=== PATIENT | female | born 1945 | race Hispanic/Latino ===

== ENCOUNTER 2018-03-28 09:12 | Outpatient (CLI) | payer MEDICARE, OTHER | END 2018-03-28 09:13 | disposition home or self-care (01) | LOC: RAD 09:12 | DX: Z12.31 Encounter for screening mammogram for malignant neoplasm of breast (principal) ==

== ENCOUNTER 2018-04-09 09:29 | Outpatient (CLI) | payer MEDICARE, OTHER | END 2018-04-09 09:30 | disposition home or self-care (01) | LOC: RAD 09:29 | DX: Z13.820 Encounter for screening for osteoporosis (principal) ==

== ENCOUNTER → 2018-06-10 | Outpatient (CLI) | payer MEDICARE, OTHER | LOC: LAB 11:03 ==

== ENCOUNTER 2018-06-12 13:22 | Outpatient (CLI) | payer MEDICARE, OTHER | END 2018-06-12 13:23 | disposition home or self-care (01) | LOC: LAB 13:22 | DX: R19.7 Diarrhea, unspecified (principal) ==

== ENCOUNTER 2018-06-20 00:42 | Inpatient (IN) | payer MEDICARE, OTHER ==
[2018-06-20 01:06] VITALS: BMI 28.3
--- NOTE | 2018-06-20 01:09 | ED PDOC ---
Arrival/HPI - General Time Seen by Provider: 06/20/18 00:47 Historian: Family - History of Present Illness Narrative History of Present Illness (Text): 06/20/18 01:09 73 year old female, whose past medical history includes Hypertension, diabetes, and Hypercholesterolemia, presents to the emergency department with altered mental status. Patient's family inform she was last normal 1 hour prior to arrival. Family informs patient became incoherent and unaware. Family inform patient is usually oriented to person place and time, but was unable to give her own name. HPI and ROS limited due to patient's AMS. Time/Duration: 1 hour Symptom Onset: Gradual Symptom Course: Unchanged Activities at Onset: Light Context: Home Past Medical History - Provider Review Nursing Documentation Reviewed: Yes - Cardiac Hx Pacemaker: No - Neurological Hx Paralysis: No - Hematological/Oncological Hx Blood Transfusions: No Hx Blood Transfusion Reaction: No - Musculoskeletal/Rheumatological Hx Musculoskeletal Disorders: (LUPUS) - Psychiatric Hx Emotional Abuse: No Hx Physical Abuse: No Hx Substance Use: No - Anesthesia Hx Anesthesia Reactions: No - Suicidal Assessment Feels Threatened In Home Enviroment: No Family/Social History - Physician Review Nursing Documentation Reviewed: Yes Family/Social History: No Known Family HX Hx Alcohol Use: Yes (OCC WINE) Hx Substance Use: No Allergies/Home Meds Allergies/Adverse Reactions: Allergies No Known Allergies Allergy (Verified 06/20/18 01:05) Home Medications: Home Meds Medication Instructions Recorded Confirmed Amlodipine Besylate [Norvasc] 1 tab PO DAILY 05/12/15 05/12/15 Aspirin [Ecotrin] 81 mg PO DAILY 05/12/15 05/12/15 Atorvastatin [Lipitor] 1 tab PO DIN 05/12/15 05/12/15 Ezetimibe [Zetia] 1 tab PO HS 05/12/15 05/12/15 Folic Acid 1 tab PO DAILY 05/12/15 05/12/15 Glimepiride [Amaryl] 1 tab PO DAILY 05/12/15 05/12/15 Hydroxychloroquine Sulfate 1 tab PO BID 05/12/15 05/12/15 [Plaquenil] Irbesartan [Avapro] 1 tab PO HS 05/12/15 05/12/15 Metoclopramide HCl [Reglan] 1 tab PO BID 05/12/15 05/12/15 Metoprolol Succinate XL [Toprol XL] 1 tab PO DAILY 05/12/15 05/12/15 Paradise-3 Acid Ethyl Esters [Lovaza] 2 cap PO BID 05/12/15 05/12/15 Omeprazole [Prilosec] 1 cap PO DAILY 05/12/15 05/12/15 PARoxetine [Paxil] 1 tab PO DAILY 05/12/15 05/12/15 Review of Systems - Physician Review All systems were reviewed & negative as marked: Yes - Review of Systems Systems not reviewed;Unavailable: Altered Mental Status Physical Exam - Physical Exam Physical Exam Limitations: Altered Mental Status Medical Decision Making ED Course and Treatment: 06/20/18 01:19 Impression: 73 year old female presents with AMS. code strroke called on arrival. upon reurn from ct, pt noted to spike fever. empriic antibiotics given . stroke vs sepsis. Plan: -- Type and Screen -- CTA Head neck -- CT Head -- EKG -- CMP, A1C, Lipid panel, Trop -- Stroke team consult -- CBC, Platelets -- Chest X-ray -- Reassess and disposition Prior Visits: Notes and results from previous visits were reviewed. Progress Notes: 06/20/18 02:07 CT of the head Clinical history: possible stroke. Protocol: Multiple axial CT images obtained with 5 mm slice thickness were obtained through the head without administration of contrast. Comparison: None. Findings: Motion artifact limits some of the fine detail on this study. The ventricles and sulci are symmetric but prominent in size bilaterally. There are periventricular areas of low attenuation throughout the deep white matter. There is no evidence of acute hemorrhage or infarct. There is no midline shift, mass effect, or extra-axial fluid collection. The osseous structures are unremarkable. The visualized paranasal sinuses and mastoid air cells are clear. Impression: No acute hemorrhage or infarct. Findings are consistent with mild age-related atrophy and chronic small vessel ischemic disease. 06/20/18 02:[address] Prince, patient is not a tPA candidate as symptom onset was 19:00 yesterday. 06/20/18 03:34 EKG Reviewed by me, shows: NSR @84bpm Nonspecific STT wave changes No previous for comparison 06/20/18 04:01 abd soft no ttp. hemodynamic stable. urine pending. accepted dr torres. NIHSS Scale ([place]) Time Performed: 01:07 - How Severe is the Stoke Baseline Level of Consciousness: 0=Alert LOC to Questions: 2=Neither correct LOC to commands: 1=Obeys one correctly Best Gaze: 0=Normal Visual: 0=No visual loss Facial: 0=Normal Motor Arm - Left: 0=No drift Motor Arm - Right: 0=No drift Motor Leg - Left: 0=No drift Motor Leg - Right: 0=No drift Limb Ataxia: 0=Absent Sensory: 0=Normal Best Language: 2=Severe aphasia Dysarthia: 0=Normal articulation Extinction & Inattention (Neglect): 0=Normal, no object Score: 5 Risk Level: Mod Stroke Risk rTPA Inclusion/Exclusion - Refusal of Treatment Patient Refused Treatment: No - Inclusion Criteria for Altepase All of the below criteria for inclusion were reviewed: Yes Patient is 18 years or Older: Yes The Clinical Diagnosis of Ischemic Stroke That is Causing a Potentially Disabling Neurological Deficit: Yes Time of Onset is Well Established to be Less Than 270 Minute Before Treatment Would Begin: Yes Risk/Benefit Discussed With Patient/Family Member Present: Yes - Scribe Statement The provider has reviewed the documentation as recorded by the Maneibe John Husain Provider Scribe Attestation: All medical record entries made by the Scribe were at my direction and personally dictated by me. I have reviewed the chart and agree that the record accurately reflects my personal performance of the history, physical exam, medical decision making, and the department course for this patient. I have also personally directed, reviewed, and agree with the discharge instructions and disposition. Disposition/Present on Arrival - Present on Arrival Any Indicators Present on Arrival: No - Disposition Have Diagnosis and Disposition been Completed?: Yes Diagnosis: Altered mental status, Fever Disposition: HOSPITALIZED Disposition Time: 03:00 Condition: FAIR
[2018-06-20] MEDS ORDERED: Iodixanol 320 MG/ML 100 ML BOTTLE IV ONE ×2 (01:19→01:45)
[2018-06-20 01:23] LABS: BASO # 0.05 K/mm3 (0.0-2.0); BASO % 0.4 % (0.0-3.0); EOS # 0.1 (0.0-0.7); EOS % 0.8 % (1.5-5.0); HEMOGLOBIN 12.7 g/dL (12.0-16.0); LYMPH # 1.8 (1.2-3.4); LYMPH % 15.3 % (22.0-35.0); MEAN CELL VOLUME 86.6 fl (80.0-105.0); MEAN CORPUSCULAR HEMOGLOBIN 29.4 pg (25.0-35.0); MEAN PLATELET VOLUME 10.8 fl (7.0-11.0); MONO # 0.8 (0.1-0.6); MONO % 6.8 % (1.0-6.0); RBC 4.32 10^6/uL (3.5-6.1); RED CELL DISTRIBUTION WIDTH 13.6 % (11.5-14.5); WHITE BLOOD COUNT 11.9 10^3/uL (4.5-11.0)
[2018-06-20 01:33] LABS: ALB/GLOB RATIO 1.7 (1.1-1.8); ALBUMIN 4.2 g/dL (3.0-4.8); ALT/SGPT 19 U/L (7-56); AST/SGOT 22 U/L (14-36); BLOOD UREA NITROGEN 14 mg/dL (7-21); CALCIUM 9.1 mg/dL (8.4-10.5); GFR NON-AFRICAN AMERICAN 55; HDL CHOLESTEROL 32 mg/dL (29-60)
[2018-06-20 01:39] LABS: INR 1.14; PARTIAL THROMBOPLASTIN TIME 34.9 Seconds (26.9-38.3); PROTHROMBIN TIME 12.6 SECONDS (9.4-12.5)
[2018-06-20 01:44] LABS: LDL CHOLESTEROL 76 mg/dL (0-129)
[2018-06-20 01:47] LABS: TROPONIN I < 0.01 ng/mL
[2018-06-20] MEDS: Sodium Chloride 0.9% 1,000 ML IV SCH ×2 (02:15→22:53)
[2018-06-20 02:46] LABS: VENOUS BLOOD GAS BASE EXCESS 0.7 mmol/L (0.0-2.0); VENOUS BLOOD GAS PO2 31 mm/Hg (30-55); VENOUS BLOOD PH 7.41 (7.32-7.43)
[2018-06-20] MEDS ORDERED: Vancomycin 1gm in NS 250ml 1 GM/250 ML BAG IVPB STA (02:53)
--- NOTE | 2018-06-20 04:44 | CP.PCM.HP ---
History of Present Illness - History of Present Illness History of Present Illness: H&P for Dr. Adam CC: AMS Patient is a 73 yo F with PMH of HTN, HLD, DM, depression, and Lupus presents to [facility] [place] due to altered mental status. History was provided by family at bedside as HPI/ROS was limited 2/2 patient's current mental status. Patient's states that she was normal as of 7 pm last night when she had an acute change in her mental status. Patient became confused, aphasic, and unaware of her surroundings. Family states that patient is AOx3 at baseline. On my interview, patient was able to verbalize "yes" and "no", but it is unclear whether patient understands questioning. Patient does not follow commands. PMH: HTN, HLD, DM, depression, Lupus Surg: Right knee replacement All: NKDA SH: 1 ppd tobacco use for 30 years and social EtOH use; no illicit drug use FHx: Unknown, patient is adopted Medications reviewed as per MAR Present on Admission - Present on Admission Any Indicators Present on Admission: No Review of Systems - Review of Systems Systems not reviewed;Unavailable: Altered Mental Status Past Patient History - Past Social History Smoking Status: Light Smoker < 10 Cigarettes Daily - CARDIAC Hx Pacemaker: No - NEUROLOGICAL Hx Paralysis: No - ENDOCRINE/METABOLIC Hx Endocrine Disorders: Yes Hx Diabetes Mellitus Type 2: Yes - HEMATOLOGICAL/ONCOLOGICAL Hx Blood Transfusions: No Hx Blood Transfusion Reaction: No - MUSCULOSKELETAL/RHEUMATOLOGICAL Hx Musculoskeletal Disorders: (LUPUS) - PSYCHIATRIC Hx Emotional Abuse: No Hx Physical Abuse: No Hx Substance Use: No - SURGICAL HISTORY Hx Surgeries: Yes (SEE ABOVE) - ANESTHESIA Hx Anesthesia Reactions: No Meds Allergies/Adverse Reactions: Allergies Allergy/AdvReac Type Severity Reaction Status Date / Time No Known Allergies Allergy Verified 06/20/18 01:05 Physical Exam - Constitutional Appears: Confused - Head Exam Head Exam: NORMAL INSPECTION - Eye Exam Eye Exam: Normal appearance - ENT Exam ENT Exam: Mucous Membranes Moist, Normal Exam - Neck Exam Neck exam: Positive for: Normal Inspection - Respiratory Exam Respiratory Exam: Clear to Auscultation Bilateral. absent: Rales, Rhonchi, Wheezes - Cardiovascular Exam Cardiovascular Exam: RRR, +S1, +S2. absent: Diastolic murmur, Gallop, Rubs, Systolic Murmur - GI/Abdominal Exam GI & Abdominal Exam: Soft. absent: Distended, Guarding, Rebound, Tenderness - Extremities Exam Extremities exam: Positive for: normal inspection - Back Exam Back exam: NORMAL INSPECTION - Neurological Exam Neurological exam: Altered - Skin Skin Exam: Dry, Intact, Warm Results - Vital Signs Recent Vital Signs: Last Vital Signs Temp 100 F H 06/20/18 03:42 Pulse 79 06/20/18 03:42 Resp 18 06/20/18 03:42 BP 107/59 L 06/20/18 03:42 Pulse Ox 97 06/20/18 03:42 - Labs Result Diagrams: 06/20/18 01:15 06/20/18 01:15 Labs: Laboratory Results - last 24 hr 06/20/18 06/20/18 06/20/18 00:59 01:15 01:15 WBC 11.9 H RBC 4.32 Hgb 12.7 Hct 37.4 MCV 86.6 MCH 29.4 MCHC 34.0 RDW 13.6 Plt Count 258 MPV 10.8 Neut % (Auto) 76.7 H Lymph % (Auto) 15.3 L Dawson % (Auto) 6.8 H Eos % (Auto) 0.8 L Baso % (Auto) 0.4 Lymph # (Auto) 1.8 Dawson # (Auto) 0.8 H Eos # (Auto) 0.1 Baso # (Auto) 0.05 Absolute Neuts (auto) 9.09 H PT 12.6 H INR 1.14 APTT 34.9 pO2 VBG pH VBG pCO2 VBG HCO3 VBG Total CO2 VBG O2 Sat (Calc) VBG Base Excess VBG Potassium Glucose Lactate FiO2 Sodium Potassium Chloride Carbon Dioxide Anion Gap BUN Creatinine Est GFR ( Amer) Est GFR (Non-Af Amer) POC Glucose (mg/dL) 128 H Random Glucose Calcium Total Bilirubin AST ALT Alkaline Phosphatase Troponin I Total Protein Albumin Globulin Albumin/Globulin Ratio Triglycerides Cholesterol LDL Cholesterol Direct HDL Cholesterol Venous Blood Potassium Blood Type Antibody Screen BBK History Checked 06/20/18 06/20/18 06/20/18 01:15 01:15 02:14 WBC RBC Hgb Hct MCV MCH MCHC RDW Plt Count MPV Neut % (Auto) Lymph % (Auto) Dawson % (Auto) Eos % (Auto) Baso % (Auto) Lymph # (Auto) Dawson # (Auto) Eos # (Auto) Baso # (Auto) Absolute Neuts (auto) PT INR APTT pO2 31 VBG pH 7.41 VBG pCO2 40.0 VBG HCO3 25.4 VBG Total CO2 26.6 VBG O2 Sat (Calc) 62.9 VBG Base Excess 0.7 VBG Potassium 3.7 Glucose 141 H Lactate 2.0 FiO2 21.0 Sodium 137 137.0 Potassium 3.5 L Chloride 105 102.0 Carbon Dioxide 19 L Anion Gap 17 BUN 14 Creatinine 1.0 Est GFR ( Amer) > 60 Est GFR (Non-Af Amer) 55 POC Glucose (mg/dL) Random Glucose 130 H Calcium 9.1 Total Bilirubin 0.5 AST 22 ALT 19 Alkaline Phosphatase 81 Troponin I < 0.01 Total Protein 6.7 Albumin 4.2 Globulin 2.5 Albumin/Globulin Ratio 1.7 Triglycerides 175 H Cholesterol 126 L LDL Cholesterol Direct 76 HDL Cholesterol 32 Venous Blood Potassium 3.7 Blood Type O NEGATIVE Antibody Screen Negative BBK History Checked No verified bt Assessment & Plan - Assessment and Plan (Free Text) Assessment: 73 yo F with PMH of HTN, HLD, DM, depression, and Lupus presents to [facility] [place] for AMS. Patient was code stroke with NIHSS 5, neurology was contacted and determined that patient was not a candidate for tPA. Further CVA evaluation is pending. However, underlying infection could also be the cause of her mental status. Plan: 1. Altered Mental Status - Possibly 2/2 CVA vs sepsis vs encephalitis vs. toxic metabolic syndrome - Head CT showed no acute hemorrhage or infarct. Consistent with mild age- related atrophy and chronic small vessel ischemic disease. - Head/Neck CTA normal - CXR possible infiltrate in right middle lobe, f/u official read - UA negative - MRI brain ordered - Echo with bubble ordered - Serum Ammonia level ordered - UDS ordered - Blood and urine cultures - Procalcitonin ordered - Merrem; one dose of Rocephin and Vanco in ED - Acyclovir IV ordered - ASA RC daily - Tylenol and cooling blanket for fever - NS at 100 cc/hr - NPO, failed bedside swallow - Swallow eval ordered - Seizure, fall, and aspiration precautions - Neurochecks q4h - Neurology consulted - ID consulted 2. Hypokalemia - KCl IVPB 10 mEq x2 - Cont to monitor and replete as needed 3. DM - HgbA1c - Frutosamine - Glycomark - ISS - Accuchecks q6h 4. HLD - Cont Lipitor, Zetia, and Lovaza 5. HTN - Cont Toprol XL - Hold Norvasc and Irbesartan 6. Lupus - Cont Hydroxychloroquine 7. Depression - Cont Paxil - Psych consulted 8. Tobacco Abuse - Nicotine patch GI/DVT PPx - Protonix - Lovenox Patient was discussed in detail with Dr. Adam. Wally Mccabe DO PGY2
[2018-06-20 04:48] LABS: PH,URINE 6.5 (4.7-8.0); URINE BILIRUBIN NEGATIVE (NEGATIVE); URINE BLOOD MODERATE (NEGATIVE); URINE GLUCOSE (UA) NEGATIVE (NEGATIVE); URINE LEUKOCYTE ESTERASE NEGATIVE Leu/uL (NEGATIVE); URINE PROTEIN NEGATIVE mg/dL (<30 mg/dL); URINE UROBILINOGEN 0.2 E.U./dL (<1 E.U./dL)
[2018-06-20 04:49] LABS: URINE APPEARANCE CLOUDY (CLEAR); URINE COLOR YELLOW (YELLOW)
[2018-06-20 05:28] LABS: BARBITURATES, UR NEGATIVE (NEGATIVE); BENZODIAZEPINES, UR NEGATIVE (NEGATIVE); OPIATES, UR NEGATIVE (NEGATIVE); PHENCYCLIDINE, UR NEGATIVE (NEGATIVE)
[2018-06-20 05:31] LABS: URINE BACTERIA FEW /hpf
[2018-06-20] MEDS ORDERED: MEROPENEM 500 MG in NS 500 MG/50 ML BAG IVPB SCH (06:00)
[2018-06-20 06:59] LABS: BASO # 0.04 K/mm3 (0.0-2.0); BASO % 0.4 % (0.0-3.0); EOS % 0.2 % (1.5-5.0); LYMPH # 1.7 (1.2-3.4); LYMPH % 16.6 % (22.0-35.0); MEAN CELL VOLUME 86.5 fl (80.0-105.0); MEAN CORPUSCULAR HEMOGLOBIN 28.6 pg (25.0-35.0); MONO # 0.7 (0.1-0.6); MONO % 7.3 % (1.0-6.0); RBC 3.85 10^6/uL (3.5-6.1); RED CELL DISTRIBUTION WIDTH 13.6 % (11.5-14.5)
[2018-06-20 07:29] LABS: ALB/GLOB RATIO 1.5 (1.1-1.8); ALBUMIN 3.4 g/dL (3.0-4.8); ALT/SGPT 15 U/L (7-56); AST/SGOT 19 U/L (14-36); BLOOD UREA NITROGEN 11 mg/dL (7-21); GFR NON-AFRICAN AMERICAN > 60
[2018-06-20] MEDS ORDERED: Magnesium Sulfate 1 gm in D5W 1 GM/100 ML BAG IVPB ONE (07:47)
[2018-06-20 07:49] LABS: HDL CHOLESTEROL 27 mg/dL (29-60)
[2018-06-20 07:51] LABS: TROPONIN I < 0.01 ng/mL
[2018-06-20 08:00] LABS: LDL CHOLESTEROL 64 mg/dL (0-129)
[2018-06-20] MEDS: Levalbuterol 0.63 MG/3 ML Inhal Soln UD IH SCH ×3 (08:13→20:35)
[2018-06-20] MEDS: Acetylcysteine 20% Inhal Soln (4ml) IH SCH ×3 (08:16→20:35)
[2018-06-20] MEDS: Insulin Lispro (humaLOG) MEDIUM Coverage SC SCH ×4 (09:29→22:56)
[2018-06-20] MEDS: Omega-3-Acid Ethyl Esters 1 GM Cap PO SCH ×3 (09:32→19:00)
--- NOTE | 2018-06-20 09:54 | RAD ---
Date of service: 06/20/2018 PROCEDURE: CHEST RADIOGRAPH, 1 VIEW HISTORY: Code Stroke COMPARISON: 05/18/2016 FINDINGS: LUNGS: Mild vascular and interstitial congestion PLEURA: No pneumothorax or pleural fluid seen. CARDIOVASCULAR: No aortic atherosclerotic calcification present. Normal. OSSEOUS STRUCTURES: No significant abnormalities. VISUALIZED UPPER ABDOMEN: Normal. OTHER FINDINGS: None. IMPRESSION: Mild vascular and interstitial congestion
[2018-06-20] MEDS ORDERED: Metoprolol Succinate 50 mg XL Tab PO SCH (10:00)
[2018-06-20] MEDS ORDERED: cefTRIAXone 1 gm 1 GM/100 ML BAG IVPB SCH (10:00)
[2018-06-20] MEDS ORDERED: Omega-3-Acid Ethyl Esters 1 GM Cap PO SCH (10:00)
[2018-06-20] MEDS ORDERED: Enoxaparin 40 mg Syringe SC SCH (10:00)
--- NOTE | 2018-06-20 10:15 | CT ---
Date of service: 06/20/2018 PROCEDURE: CT HEAD WITHOUT CONTRAST. HISTORY: Code Stroke COMPARISON: None available. TECHNIQUE: Axial computed tomography images were obtained through the head/brain without intravenous contrast. Radiation dose: Total exam DLP = 1662.54 mGy-cm. This CT exam was performed using one or more of the following dose reduction techniques: Automated exposure control, adjustment of the mA and/or kV according to patient size, and/or use of iterative reconstruction technique. FINDINGS: HEMORRHAGE: No intracranial hemorrhage. BRAIN: No mass effect or edema. Chronic microvascular changes. Mild atrophy. VENTRICLES: Unremarkable. No hydrocephalus. CALVARIUM: Unremarkable. PARANASAL SINUSES: Unremarkable as visualized. No significant inflammatory changes. MASTOID AIR CELLS: Unremarkable as visualized. No inflammatory changes. OTHER FINDINGS: The report concurs with the preliminary [facility] report IMPRESSION: No acute intracranial findings
--- NOTE | 2018-06-20 10:21 | CT ---
Date of service: 06/20/2018 PROCEDURE: CT Angiography of the neck with contrast HISTORY: code stroke COMPARISON: None. TECHNIQUE: Contiguous axial images of the neck were obtained from the level of the skull-base to the superior mediastinum in the arteriographic phase of enhancement. Coronal and sagittal reformats or also generated. IV contrast dose: 120 cc of Visipaque Radiation dose: Total exam DLP = 543.59 mGy-cm. This CT exam was performed using one or more of the following dose reduction techniques: Automated exposure control, adjustment of the mA and/or kV according to patient size, and/or use of iterative reconstruction technique. FINDINGS: RIGHT CAROTID ARTERIES: No significant stenosis LEFT CAROTID ARTERIES: Minimal calcified plaque in the carotid bifurcation with no significant stenosis VERTEBRAL ARTERIES: Right Vertebral Artery: Normal. Left Vertebral Artery: Normal. OTHER FINDINGS: no aortic atherosclerotic calcification or mural plaque present. IMPRESSION: No significant stenosis CT Angiography of the Brain. HISTORY: code stroke COMPARISON: None available. TECHNIQUE: CT angiography of the intracranial arteries was performed. Coronal and sagittal maximum intensity projection reformated images were generated. Radiation dose: Total exam DLP = 543.59 mGy-cm. This CT exam was performed using one or more of the following dose reduction techniques: Automated exposure control, adjustment of the mA and/or kV according to patient size, and/or use of iterative reconstruction technique. FINDINGS: INTERNAL CEREBRAL ARTERIES: Unremarkable. The skull base, petrous, cavernous and supraclinoid segments are bilaterally widely patent. ANTERIOR CEREBRAL ARTERIES: Unremarkable. A1 and A2 segments are widely patent. Smaller distal branches unremarkable, as visualized. MIDDLE CEREBRAL ARTERIES: Unremarkable. M1 and M2 segments are widely patent. Perisylvian branches grossly symmetric. POSTERIOR CIRCULATION: Basilar Artery: Unremarkable. Distal Vertebral Arteries: Unremarkable. Posterior Cerebral Arteries: Unremarkable. Posterior Inferior Cerebellar Arteries: Unremarkable. ANEURYSM/ VASCULAR MALFORMATIONS: None. OTHER FINDINGS: The report concurs with the preliminary [facility] report IMPRESSION: Unremarkable CT Angiography of the Brain.
[2018-06-20 10:41] LABS: VENOUS BLOOD GAS BASE EXCESS -1.3 mmol/L (0.0-2.0); VENOUS BLOOD GAS PO2 146 mm/Hg (30-55); VENOUS BLOOD PH 7.38 (7.32-7.43)
[2018-06-20] MEDS: Enoxaparin 40 mg Syringe SC SCH (11:01)
[2018-06-20 11:06] LABS: FREE T4 1.16 ng/dL (0.78-2.19)
[2018-06-20] MEDS: AMPicillin 2 GM in Sodium Chloride 0.9% 100 ML IVPB SCH ×3 (12:09→18:53)
--- NOTE | 2018-06-20 13:40 | CON ---
DATE: 06/20/2018 NEUROLOGY CONSULTATION CHIEF COMPLAINT: Change in mental status. HISTORY OF PRESENT ILLNESS: This is a 73-year-old woman with past medical history of hypertension, dyslipidemia, type 2 diabetes mellitus, depression, and lupus, who came into the hospital for change in mental status. Apparently, the patient's says she is normally at baseline at 7:00 p.m. last night when she had acute change in mental status and was already verbalized yes and no. She is mildly catatonic according to the ER picture, but otherwise currently she is leaned on the site of the bed following commands, getting up to urinate and slightly agitated, otherwise, moves all extremities. No focal weakness seen on exam. CAT scan of the head and CT angio of the head and neck was unremarkable. Case discussed with son at bedside, he says the central fever, but no elevated white count. PAST MEDICAL HISTORY: As above. PAST SURGICAL HISTORY: Right-knee replacement. ALLERGIES: NO KNOWN DRUG ALLERGIES. SOCIAL HISTORY: One-pack of tobacco use for 30 years. No social EtOH use. No illicit drug use. MEDICATIONS: Reviewed by nurses' reconciliation sheet. FAMILY HISTORY: Noncontributory. LABORATORY DATA: Sodium is 137, potassium 3.2, chloride 107, carbon dioxide 21, BUN of 11, creatinine 0.7, and random glucose of 96. Ammonia level is less than 9. PHYSICAL EXAMINATION: GENERAL: The patient is seen up in bed, lying on the site, following simple commands. VITAL SIGNS: Temperature 100, pulse is 69, blood pressure of 105/52, respiratory rate 18, oxygen saturations 96% on room air. HEENT: Atraumatic, normocephalic. PERRLA. Extraocular muscles intact. NECK: Supple. No JVD. No adenopathy noted. LUNGS: Clear to auscultation. No adventitious sounds. HEART: S1 and S2. Normal rate and rhythm. No murmurs, rubs or gallops. ABDOMEN: Soft, nontender, nondistended. Bowel sounds present. EXTREMITIES: No clubbing, no cyanosis. Peripheral pulses are 2+felt bilaterally. NEUROLOGIC: The patient is alert and oriented to person, place, but not year. Recall after 5 minutes 0/3. Poor attention span. Slow thought process. Cranial nerves II through XII are intact. Motor exam; moves all extremities equally and slight increased tone throughout. No pronator drift seen. Sensory exam; diffuse light touch and pinprick proprioception up to the calves bilaterally. DTRs are 2+ and 1 at both knees and ankles. Coordination and gait is deferred to now. IMPRESSION: Change in mental status could be secondary to underlying systemic inflammatory response syndrome given that she has low blood pressure 104/52 indicates transient cerebral hypoperfusion and central fever of 100. CAT scan of the head and CT angio of head and neck shows no acute abnormalities. RECOMMENDATIONS: At that time, we recommend; 1. Monitor her white count. 2. Probably CT abdomen to see if any localize symptoms causing fever. 3. MRI of brain to assess for any etiology. 4. Monitor electrolytes and correct accordingly. 5. Psychiatry to follow for history of depression and possible catatonia. At this time, continue with current and present medical management. Thank you for this consult. Librado Grigsby MD
[2018-06-20] MEDS: cefTRIAXone 2 GM IN NS 2 GM/100 ML BAG IVPB SCH ×2 (15:14→22:52)
[2018-06-20 17:23] LABS: RAPID PLASMA REAGIN NONREACTIVE (NONREACTIVE)
--- NOTE | 2018-06-20 17:36 | MRI ---
Date of service: 06/20/2018 PROCEDURE: MRI BRAIN WITHOUT CONTRAST HISTORY: r/o cva COMPARISON: CT head without contrast from 06/20/2017. TECHNIQUE: Multiplanar, multisequence MR images of the brain were obtained without intravenous contrast enhancement. Examination is limited as the patient was confused and could not cooperate for the examination. FINDINGS: HEMORRHAGE: None DWI: No evidence of an acute or early subacute infarction. BRAIN PARENCHYMA: There are scattered and confluent T2 hyperintense lesions in the subcortical deep and periventricular white matter.. There is no mass, mass effect or abnormal extra-axial fluid collection. There is no territorial infarction. The midline sagittal structures are normal. VENTRICLES: There is mild age-related global parenchymal volume loss and proportionate enlargement of the ventricles and cortical sulci. CRANIUM: Unremarkable. ORBITS: Grossly unremarkable. PARANASAL SINUSES/MASTOIDS: Clear VASCULAR SYSTEM: Skull base flow voids intact. OTHER FINDINGS: None. IMPRESSION: 1. Limited examination due to motion degraded images. 2. No acute infarction. 3. Multifocal subcortical, deep and periventricular white matter changes are strictly nonspecific. The differential considerations include moderate chronic microangiopathic changes, demyelinating disease including multiple sclerosis, chronic infarction, Lyme's disease and vasculitis. Clinical follow-up is advised.
[2018-06-20] MEDS: Vancomycin 1gm in NS 250ml 1 GM/250 ML BAG IVPB SCH (17:37)
[2018-06-20 17:49] LABS: FOLATE > 20.0 ng/mL
--- NOTE | 2018-06-20 19:23 | CARD ---
APPROVED REPORT Date of service: 06/20/2018 EXAM: Two-dimensional and M-mode echocardiogram with Doppler and color Doppler. INDICATION BUBBLE STUDY..R/O PFO..LVFX 2D DIMENSIONS Left Atrium (2D)3.4 (1.6-4.0cm)IVSd1.1 (0.7-1.1cm) LVDd4.3 (3.9-5.9cm)PWd1.0 (0.7-1.1cm) LVDs2.8 (2.5-4.0cm)FS (%) 34.0 % LVEF (%)63.2 (>50%) M-Mode DIMENSIONS Aortic Root3.50 (2.2-3.7cm)Aortic Cusp Exc.2.10 (1.5-2.0cm) Aortic Valve AoV Peak Edmjhxpw573.0cm/Jarad Peak GR.5mmHg Mitral Valve MV E Grrnqofn29.7cm/sMV A Xrwoojwt70.2cm/sE/A ratio0.8 TDI Lateral E' Peak V8.19cm/sMedial E' Peak V7.31cm/sE/Lateral E'9.1 E/Medial E'10.2 Pulmonary Valve PV Peak Cintkymz65.0cm/sPV Peak Grad.2mmHg Tricuspid Valve TR Peak Wkyweybb267dl/sRAP [id number] Peak Gr.14mmHg [id number] LEFT VENTRICLE The left ventricle is normal size. There is normal left ventricular wall thickness. The left ventricular function is normal. The left ventricular ejection fraction is within the normal range. There is normal LV segmental wall motion. Transmitral Doppler flow pattern is Grade I-abnormal relaxation pattern. RIGHT VENTRICLE The right ventricle is normal size. There is normal right ventricular wall thickness. The right ventricular systolic function is normal. ATRIA The left atrium size is normal. The right atrium size is normal. The interatrial septum is intact AORTIC VALVE The aortic valve is not well visualized. No aortic regurgitation is present. There is no aortic valvular stenosis. MITRAL VALVE The mitral valve is normal in structure. There is no mitral valve regurgitation noted. TRICUSPID VALVE The tricuspid valve is normal in structure. There is trace to mild tricuspid regurgitation. PULMONIC VALVE The pulmonary valve is normal in structure. There is trace pulmonic valvular regurgitation. GREAT VESSELS The aortic root is normal in size. The IVC is normal in size and collapses >50% with inspiration. <Conclusion> There is normal left ventricular wall thickness. The left ventricular function is normal. The left ventricular ejection fraction is within the normal range. There is normal LV segmental wall motion. Transmitral Doppler flow pattern is Grade I-abnormal relaxation pattern. The interatrial septum is intact
--- NOTE | 2018-06-20 21:25 | CP.PCM.CON ---
History of Present Illness - History of Present Illness History of Present Illness: 73 year old female with PMH of dyslipidemia, SLE, depression, HTN, DM was brought in by family because of fever associated with confusion that started a few hours prior to being seen in the ED. The patient was apparently alert and oriented prior to the episode and suddenly was confused, initially was not talking. There was no note of vomiting, no loss of consciousness, no bowel or urinary incontinence, no diarrhea. On interview and examination currently, the patient is more awake according to the family, patient is awake and alert but answers slowly. She denies abdominal pain, no headache, no chest pain, no SOB, no cough, no rhinorrhea. The family present does not know if she has traveled recently. Infectious Diseases consult is requested to further evaluate and manage. Review of Systems - Review of Systems All systems: reviewed and no additional remarkable complaints except (as per HPI) Past Patient History - Past Social History Smoking Status: Light Smoker < 10 Cigarettes Daily - CARDIAC Hx Pacemaker: No - NEUROLOGICAL Hx Paralysis: No - ENDOCRINE/METABOLIC Hx Endocrine Disorders: Yes Hx Diabetes Mellitus Type 2: Yes - HEMATOLOGICAL/ONCOLOGICAL Hx Blood Transfusions: No Hx Blood Transfusion Reaction: No - MUSCULOSKELETAL/RHEUMATOLOGICAL Hx Musculoskeletal Disorders: (LUPUS) - PSYCHIATRIC Hx Emotional Abuse: No Hx Physical Abuse: No Hx Substance Use: No - SURGICAL HISTORY Hx Surgeries: Yes (SEE ABOVE) - ANESTHESIA Hx Anesthesia Reactions: No Meds Allergies/Adverse Reactions: Allergies Allergy/AdvReac Type Severity Reaction Status Date / Time No Known Allergies Allergy Verified 06/20/18 01:05 - Medications Medications: Current Medications Acetaminophen (Tylenol 325mg Tab) 650 mg PO Q6 PRN PRN Reason: TEMP>=99.5F Acetaminophen (Tylenol 650 Mg Supp) 650 mg RC Q6H PRN PRN Reason: TEMP>=99.5F Acetylcysteine (Acetylcysteine 20%) 4 ml IH [id number] [facility] Aspirin (Aspirin Supp) 300 mg RC DAILY [facility] Atorvastatin Calcium (Lipitor) 10 mg PO DIN [facility] Ezetimibe (Zetia) 10 mg PO HS [facility] Enoxaparin Sodium (Lovenox) 40 mg SC DAILY [facility]; Protocol Folic Acid (Folic Acid) 1 mg PO DAILY [facility] Hydroxychloroquine Sulfate (Plaquenil) 200 mg PO BID [facility]; Protocol Sodium Chloride (Sodium Chloride 0.9%) 1,000 mls @ 100 mls/hr IV .Q10H [facility] Last Admin: 06/20/18 02:15 Dose: 100 mls/hr Meropenem/Sodium Chloride (Merrem Iv 500 Mg/Ns 50 Ml) 500 mg in 50 mls @ 100 mls/hr IVPB Q8 [facility]; Protocol Stop: 06/20/18 14:29 Potassium Chloride (Potassium Chloride 10 Meq/100 Ml) 10 meq in 100 mls @ 100 mls/hr IVPB Q2H [facility] Stop: 06/20/18 07:29 Last Admin: 06/20/18 06:01 Dose: 100 mls/hr Acyclovir 700 mg/ Sodium (Chloride) 100 mls @ 100 mls/hr IV Q8 [facility]; Protocol Insulin Human Lispro (Humalog Med) 0 units SC ACHS [facility]; Protocol Levalbuterol HCl (Xopenex) 0.63 mg IH [id number] [facility] Metoprolol Succinate (Toprol Xl) 50 mg PO DAILY [facility] Nicotine (Nicoderm Cq) 1 patch TD DAILY [facility] [id number] Ethyl Esters (Lovaza) 1 gm PO BID [facility] Ondansetron HCl (Zofran Inj) 4 mg IVP Q4H PRN PRN Reason: Nausea/Vomiting Pantoprazole Sodium (Protonix Inj) 40 mg IVP DAILY [facility] Physical Exam - Constitutional Appears: Non-toxic, Chronically Ill - Head Exam Head Exam: NORMAL INSPECTION - ENT Exam ENT Exam: Mucous Membranes Moist - Neck Exam Neck exam: Negative for: Lymphadenopathy, Meningismus - Respiratory Exam Respiratory Exam: Decreased Breath Sounds - Cardiovascular Exam Cardiovascular Exam: +S1, +S2 - GI/Abdominal Exam GI & Abdominal Exam: Soft. absent: Tenderness Results - Vital Signs Recent Vital Signs: Last Vital Signs Temp 100 F H 06/20/18 03:42 Pulse 79 06/20/18 03:42 Resp 18 06/20/18 03:42 BP 107/59 L 06/20/18 03:42 Pulse Ox 97 06/20/18 03:42 - Labs Result Diagrams: 06/20/18 06:20 06/20/18 06:20 Labs: Laboratory Results - last 24 hr 06/20/18 06/20/18 06/20/18 00:59 01:15 01:15 WBC 11.9 H RBC 4.32 Hgb 12.7 Hct 37.4 MCV 86.6 MCH 29.4 MCHC 34.0 RDW 13.6 Plt Count 258 MPV 10.8 Neut % (Auto) 76.7 H Lymph % (Auto) 15.3 L Humphreys % (Auto) 6.8 H Eos % (Auto) 0.8 L Baso % (Auto) 0.4 Lymph # (Auto) 1.8 Humphreys # (Auto) 0.8 H Eos # (Auto) 0.1 Baso # (Auto) 0.05 Absolute Neuts (auto) 9.09 H PT 12.6 H INR 1.14 APTT 34.9 pO2 VBG pH VBG pCO2 VBG HCO3 VBG Total CO2 VBG O2 Sat (Calc) VBG Base Excess VBG Potassium Glucose Lactate FiO2 Sodium Potassium Chloride Carbon Dioxide Anion Gap BUN Creatinine Est GFR ( Amer) Est GFR (Non-Af Amer) POC Glucose (mg/dL) 128 H Random Glucose Calcium Total Bilirubin AST ALT Alkaline Phosphatase Troponin I Total Protein Albumin Globulin Albumin/Globulin Ratio Triglycerides Cholesterol LDL Cholesterol Direct HDL Cholesterol Venous Blood Potassium Urine Color Urine Appearance Urine pH Ur Specific Pev[place] Urine Protein Urine Glucose (UA) Urine Ketones Urine Blood Urine Nitrate Urine Bilirubin Urine Urobilinogen Ur Leukocyte Esterase Urine RBC Urine WBC Ur Epithelial Cells Urine Bacteria Urine Opiates Screen Urine Methadone Screen Ur Barbiturates Screen Ur Phencyclidine Scrn Ur Amphetamines Screen U Benzodiazepines Scrn U Oth Cocaine Metabols U Cannabinoids Screen Blood Type Blood Type Confirm Antibody Screen BBK History Checked 06/20/18 06/20/18 06/20/18 01:15 01:15 02:14 WBC RBC Hgb Hct MCV MCH MCHC RDW Plt Count MPV Neut % (Auto) Lymph % (Auto) Humphreys % (Auto) Eos % (Auto) Baso % (Auto) Lymph # (Auto) Humphreys # (Auto) Eos # (Auto) Baso # (Auto) Absolute Neuts (auto) PT INR APTT pO2 31 VBG pH 7.41 VBG pCO2 40.0 VBG HCO3 25.4 VBG Total CO2 26.6 VBG O2 Sat (Calc) 62.9 VBG Base Excess 0.7 VBG Potassium 3.7 Glucose 141 H Lactate 2.0 FiO2 21.0 Sodium 137 137.0 Potassium 3.5 L Chloride 105 102.0 Carbon Dioxide 19 L Anion Gap 17 BUN 14 Creatinine 1.0 Est GFR ( Amer) > 60 Est GFR (Non-Af Amer) 55 POC Glucose (mg/dL) Random Glucose 130 H Calcium 9.1 Total Bilirubin 0.5 AST 22 ALT 19 Alkaline Phosphatase 81 Troponin I < 0.01 Total Protein 6.7 Albumin 4.2 Globulin 2.5 Albumin/Globulin Ratio 1.7 Triglycerides 175 H Cholesterol 126 L LDL Cholesterol Direct 76 HDL Cholesterol 32 Venous Blood Potassium 3.7 Urine Color Urine Appearance Urine pH Ur Specific [place] Urine Protein Urine Glucose (UA) Urine Ketones Urine Blood Urine Nitrate Urine Bilirubin Urine Urobilinogen Ur Leukocyte Esterase Urine RBC Urine WBC Ur Epithelial Cells Urine Bacteria Urine Opiates Screen Urine Methadone Screen Ur Barbiturates Screen Ur Phencyclidine Scrn Ur Amphetamines Screen U Benzodiazepines Scrn U Oth Cocaine Metabols U Cannabinoids Screen Blood Type O NEGATIVE Blood Type Confirm Antibody Screen Negative BBK History Checked No verified bt 06/20/18 06/20/18 06/20/18 02:21 03:10 04:27 WBC RBC Hgb Hct MCV MCH MCHC RDW Plt Count MPV Neut % (Auto) Lymph % (Auto) Humphreys % (Auto) Eos % (Auto) Baso % (Auto) Lymph # (Auto) Humphreys # (Auto) Eos # (Auto) Baso # (Auto) Absolute Neuts (auto) PT INR APTT pO2 VBG pH VBG pCO2 VBG HCO3 VBG Total CO2 VBG O2 Sat (Calc) VBG Base Excess VBG Potassium Glucose Lactate FiO2 Sodium Potassium Chloride Carbon Dioxide Anion Gap BUN Creatinine Est GFR ( Amer) Est GFR (Non-Af Amer) POC Glucose (mg/dL) Random Glucose Calcium Total Bilirubin AST ALT Alkaline Phosphatase Troponin I Total Protein Albumin Globulin Albumin/Globulin Ratio Triglycerides Cholesterol LDL Cholesterol Direct HDL Cholesterol Venous Blood Potassium Urine Color Yellow Urine Appearance Cloudy Urine pH 6.5 Ur Specific [place] 1.010 Urine Protein Negative Urine Glucose (UA) Negative Urine Ketones Trace H Urine Blood Moderate H Urine Nitrate Negative Urine Bilirubin Negative Urine Urobilinogen 0.2 Ur Leukocyte Esterase Negative Urine RBC 1 - 3 H Urine WBC None Ur Epithelial Cells 4 - 5 Urine Bacteria Few Urine Opiates Screen Negative Urine Methadone Screen Negative Ur Barbiturates Screen Negative Ur Phencyclidine Scrn Negative Ur Amphetamines Screen Negative U Benzodiazepines Scrn Negative U Oth Cocaine Metabols Negative U Cannabinoids Screen Negative Blood Type Blood Type Confirm O NEGATIVE Antibody Screen BBK History Checked Assessment & Plan - Assessment and Plan (Free Text) Plan: Assessment Systemic Inflammatory response syndrome, R/O sepsis source to be determined, R/O meningitis R/O encephalitis dyslipidemia SLE depression HTN DM Plan Started Vancomycin, Rocephin, Ampicillin, Acyclovir pending blood cx, urine cx would recommend lumbar puncture for CSF analysis when feasible, pending results of the MRI will monitor fever curve
[2018-06-20] MEDS ORDERED: IRBESARTAN PO SCH (22:00)
--- NOTE | 2018-06-20 23:58 | CARD ---
APPROVED REPORT Date of service: 06/20/2018 EKG Measurement Heart [id number] <Conclusion> Normal sinus rhythm Possible Left atrial enlargement ST & T wave abnormality, consider anterior ischemia Abnormal ECG
[2018-06-21] MEDS: AMPicillin 2 GM in Sodium Chloride 0.9% 100 ML IVPB SCH ×5 (00:32→23:30)
[2018-06-21] MEDS: Vancomycin 1gm in NS 250ml 1 GM/250 ML BAG IVPB SCH ×2 (00:33→13:36)
[2018-06-21] MEDS: Levalbuterol 0.63 MG/3 ML Inhal Soln UD IH SCH ×4 (01:25→20:51)
[2018-06-21] MEDS: Acetylcysteine 20% Inhal Soln (4ml) IH SCH ×4 (01:26→20:51)
[2018-06-21 06:58] LABS: BASO # 0.01 K/mm3 (0.0-2.0); BASO % 0.1 % (0.0-3.0); EOS # 0.1 (0.0-0.7); EOS % 0.7 % (1.5-5.0); HEMOGLOBIN 10.6 g/dL (12.0-16.0); LYMPH # 0.6 (1.2-3.4); LYMPH % 8.5 % (22.0-35.0); MEAN CELL VOLUME 87.7 fl (80.0-105.0); MEAN PLATELET VOLUME 10.2 fl (7.0-11.0); MONO # 0.3 (0.1-0.6); MONO % 3.8 % (1.0-6.0); RBC 3.66 10^6/uL (3.5-6.1); RED CELL DISTRIBUTION WIDTH 13.8 % (11.5-14.5); WHITE BLOOD COUNT 7.3 10^3/uL (4.5-11.0)
[2018-06-21 07:27] LABS: ALB/GLOB RATIO 1.4 (1.1-1.8); ALBUMIN 3.2 g/dL (3.0-4.8); ALT/SGPT 15 U/L (7-56); AST/SGOT 17 U/L (14-36); BILIRUBIN,DIRECT 0.2 mg/dL (0.0-0.4); BLOOD UREA NITROGEN 4 mg/dL (7-21); CALCIUM 8.1 mg/dL (8.4-10.5); GFR NON-AFRICAN AMERICAN > 60
[2018-06-21] MEDS: Insulin Lispro (humaLOG) MEDIUM Coverage SC SCH ×4 (08:08→21:54)
[2018-06-21] MEDS: Enoxaparin 40 mg Syringe SC SCH (10:22)
[2018-06-21] MEDS: Omega-3-Acid Ethyl Esters 1 GM Cap PO SCH ×2 (10:23→18:09)
[2018-06-21] MEDS: cefTRIAXone 2 GM IN NS 2 GM/100 ML BAG IVPB SCH ×2 (10:24→21:53)
[2018-06-21] MEDS: Sodium Chloride 0.9% 1,000 ML IV SCH (10:44)
--- NOTE | 2018-06-21 11:19 | CP.PCM.PN ---
Subjective - Date & Time of Evaluation Date of Evaluation: 06/21/18 Time of Evaluation: 08:50 - Subjective Subjective: No fevers this morning, answers a little faster today compared to yesterday, but is still off with the year (she feels it is the year 1999). No headache, no photophobia. Objective - Vital Signs/Intake and Output Vital Signs (last 24 hours): Temp Pulse Resp BP Pulse Ox 98 F 67 20 118/71 99 06/20/18 18:00 06/20/18 18:00 06/20/18 18:00 06/20/18 18:00 06/20/18 18:00 Intake and Output: 06/20/18 06/21/18 18:59 06:59 Intake Total 240 Balance 240 - Medications Medications: Current Medications Acetaminophen (Tylenol 325mg Tab) 650 mg PO Q6 PRN PRN Reason: TEMP>=99.5F Acetaminophen (Tylenol 650 Mg Supp) 650 mg RC Q6H PRN PRN Reason: TEMP>=99.5F Acetylcysteine (Acetylcysteine 20%) 4 ml IH [id number] [facility] Last Admin: 06/20/18 20:35 Dose: 4 ml Aspirin (Aspirin Supp) 300 mg RC DAILY [facility] Last Admin: 06/20/18 10:00 Dose: Not Given Atorvastatin Calcium (Lipitor) 10 mg PO DIN [facility] Last Admin: 06/20/18 17:37 Dose: Not Given Ezetimibe (Zetia) 10 mg PO HS [facility] Enoxaparin Sodium (Lovenox) 40 mg SC DAILY [facility]; Protocol Last Admin: 06/20/18 11:01 Dose: 40 mg Folic Acid (Folic Acid) 1 mg PO DAILY [facility] Last Admin: 06/20/18 09:32 Dose: Not Given Hydroxychloroquine Sulfate (Plaquenil) 200 mg PO BID [facility]; Protocol Last Admin: 06/20/18 18:49 Dose: 200 mg Sodium Chloride (Sodium Chloride 0.9%) 1,000 mls @ 100 mls/hr IV .Q10H [facility] Last Admin: 06/20/18 02:15 Dose: 100 mls/hr Acyclovir 700 mg/ Sodium (Chloride) 100 mls @ 100 mls/hr IV Q8 [facility]; Protocol Last Admin: 06/20/18 17:35 Dose: Not Given Ceftriaxone Sodium (Rocephin 2 Gm Ivpb) 2 gm in 100 mls @ 100 mls/hr IVPB Q12 [facility]; Protocol Last Admin: 06/20/18 15:14 Dose: 100 mls/hr Ampicillin 2 gm/ Sodium (Chloride) 100 mls @ 200 mls/hr IVPB Q6 [facility]; Protocol Last Admin: 06/20/18 18:53 Dose: 200 mls/hr Vancomycin HCl (Vancomycin 1gm) 1 gm in 250 mls @ 167 mls/hr IVPB Q12H [facility]; Protocol Last Admin: 06/20/18 17:37 Dose: Not Given Insulin Human Lispro (Humalog Med) 0 units SC ACHS [facility]; Protocol Last Admin: 06/20/18 17:36 Dose: Not Given Levalbuterol HCl (Xopenex) 0.63 mg IH [id number] [facility] Last Admin: 06/20/18 20:35 Dose: 0.63 mg Lorazepam (Ativan) 1 mg IVP Q6 PRN; Protocol PRN Reason: Agitation Last Admin: 06/20/18 10:31 Dose: 1 mg Metoprolol Succinate (Toprol Xl) 50 mg PO DAILY [facility] Last Admin: 06/20/18 09:33 Dose: Not Given Nicotine (Nicoderm Cq) 1 patch TD DAILY [facility] Last Admin: 06/20/18 11:01 Dose: 1 patch [id number] Ethyl Esters (Lovaza) 1 gm PO BID [facility] Last Admin: 06/20/18 19:00 Dose: Not Given Ondansetron HCl (Zofran Inj) 4 mg IVP Q4H PRN PRN Reason: Nausea/Vomiting Pantoprazole Sodium (Protonix Inj) 40 mg IVP DAILY [facility] Last Admin: 06/20/18 11:00 Dose: 40 mg - Labs Labs: 06/20/18 06:20 06/20/18 06:20 PT 12.6 SECONDS (9.4-12.5) H 06/20/18 01:15 INR 1.14 06/20/18 01:15 APTT 34.9 Seconds (26.9-38.3) 06/20/18 01:15 - Constitutional Appears: No Acute Distress, Chronically Ill - Head Exam Head Exam: NORMAL INSPECTION - ENT Exam ENT Exam: Mucous Membranes Moist - Neck Exam Neck Exam: absent: Lymphadenopathy, Meningismus - Respiratory Exam Respiratory Exam: Decreased Breath Sounds. absent: Rales - Cardiovascular Exam Cardiovascular Exam: +S1, +S2 - GI/Abdominal Exam GI & Abdominal Exam: Soft. absent: Tenderness Assessment and Plan - Assessment and Plan (Free Text) Plan: Assessment Systemic Inflammatory response syndrome, R/O sepsis source to be determined, R/O meningitis R/O encephalitis dyslipidemia SLE depression HTN DM Plan continue Vancomycin, Rocephin, Ampicillin, Acyclovir; blood cx, urine cx are negative so far would recommend lumbar puncture for CSF analysis, cultures, HSV PCR when feasible, MRI results reviewed with non-specific white matter changes with a long list of differential diagnosis - discussed with Dr. Adam will continue to monitor clinically
[2018-06-21] MEDS ORDERED: Lidocaine 1% Inj (20ml) IJ STA (12:29)
--- NOTE | 2018-06-21 13:19 | PN ---
DATE: 06/21/2018 SUBJECTIVE: The patient is seen lying in the bed in room 263, bed 2. Overnight nurse's notes were reviewed. The patient yesterday was periodically confused, but today the patient is completely alert, awake and oriented x3. Lying in the bed comfortable, in no distress. PHYSICAL EXAMINATION VITAL SIGNS: T-max is 102.3, telemetry shows sinus rhythm, blood pressure is 118/76, respiration 19 and O2 sat 96%. HEENT: Head examination normocephalic and atraumatic. HEENT examination shows pinkish conjunctivae. Anicteric sclerae. No oropharyngeal lesion. No neck rigidity. CHEST: Kyphosis. LUNGS: Shows occasional rhonchi in upper lung brennan. Questionable rhonchi upper lung field. CARDIOVASCULAR: S1 and S2, regular rhythm. Unable to appreciate any murmur, gallop, or rub. ABDOMEN: Soft, positive bowel sounds. No palpable hepatosplenomegaly. GENITALIA: Female. RECTAL: Examination deferred. EXTREMITIES: Shows no pitting edema, no calf tenderness, no Homans' sign. NEUROLOGIC: The patient is alert, awake and oriented x3. Gait examination is not tested. The patient is seen lying in the bed comfortable. MUSCULOSKELETAL: Examination shows a body mass index of 28.3. Cranial nerves II-XII limited. DIAGNOSTIC DATA: On June 21, WBC 7.3, hemoglobin/hematocrit 10.6/32.1, platelets 182 and granulocytes 87%. Platelet count has gone down from 258 to 182, WBC count has gone down from 11.9 to 7.3, hemoglobin/hematocrit has gone down from 12.7 and 37.4 to 10.6 and 32.1. Sodium 139, potassium 3.2, chloride 110, CO2 of 21, anion gap 10, BUN 4, creatinine 0.6, GFR greater than 60, glucose 101 and 168, calcium 8.1, phosphorus 2.4 which is low, magnesium is 1.7 and ammonia less than 9. Urinalysis noted. Blood cultures no growth so far. Hemoglobin A1c of 6.3. Urinalysis positive ketonuria, microscopic hematuria, bacteriuria MRI of the brain; cerebral cortical atrophy of the brain, ventriculomegaly and microangiopathic changes. Echocardiogram; ejection fraction 63%, grade 1 abnormal relaxation pattern. IMPRESSION: 1. Questionable systemic inflammatory response syndrome versus questionable sepsis versus questionable meningitis versus questionable encephalitis 2. Altered mental status probably secondary to above. 3. History of systemic lupus erythematosus. 4. History of well-controlled type 2 diabetes mellitus. 5. Questionable anti-ischemic changes on the EKG. 6. High-grade fever. 7. Normocytic anemia. 8. Questionable relative thrombocytopenia. 9. Hypokalemia. 10. Hypophosphatemia. 11. Hypomagnesemia. 12. Well-controlled type 2 diabetes mellitus with hemoglobin A1c of 6.3. 13. Ketonuria. 14. Microscopic hematuria. 15. Bacteriuria. 16. Cerebral cortical atrophy of the brain with ventriculomegaly and microangiopathic changes of the brain. 17. Grade 1 abnormal relaxation pattern. 18. History of hypertension. Hypotension at present. 19. Calcified plaques of carotid bifurcation. 20. Mild oral dysphagia. PLAN: At this time, the patient has been ordered repeat labs. Urine blood cultures are received. Current consultation Neurology, Cardiology, Infectious Disease and Psychiatry for history of depression. CURRENT MEDICATIONS: Mucomyst nebulizer with Xopenex nebulizer, ampicillin 2 g IV every 6 hours, aspirin 300 mg suppository daily, Ativan 1 mg IV every 6 hours p.r.n., folic acid 1 mg daily, Humalog medium dose sliding scale coverage a.c. and at bedtime, Lipitor 10 mg daily, Lovaza 1 g twice a day, Lovenox 40 mg subcutaneously daily, nicotine patch 21 mg daily, Plaquenil 200 mg twice a day. The patient has been ordered K-Phos rider x2, Protonix 40 mg IV daily, Rocephin 2 g IV daily and IV fluid 0.9 normal saline at 100 mL an hour. The patient's Toprol XL will be held at this time because of relative hypotension, Tylenol 650 p.o. suppository every 6 hours p.r.n., vancomycin 1 g IV every 12 hours, Zetia 10 mg daily, Zofran 4 mg IV every 4 hours p.r.n., Zovirax 700 mg IV every 8 hours, incentive spirometry and oxygen 2 liters. Repeat EKG ordered. The patient is on dysphagia modified consistency diet. The patient has been ordered BRIAN stockings, out of bed, seizure precaution, neuro checks, physical therapy, occupational therapy and ambulation therapy are ordered. The patient's condition, diagnosis, overall all the clinical details were notified to the patient's Guillermo Brown, I have spoke to him yesterday and today on phone number [phone]. I have explained all the details about the patient to the patient's at length and all questions concerned answered which he acknowledged and understood. All of the above was explained in detail to the patient's in layman's language. Dictated and electronically signed, not read. Signing off the Tomas Adam MD. Tomas Adam MD
[2018-06-21] MEDS: Potassium Phosphate 15 MMOLE in Sodium Chloride 0.9% 250 ML IVPB SCH ×2 (13:40→20:30)
--- NOTE | 2018-06-21 13:49 | CP.PCM.CON ---
History of Present Illness - History of Present Illness History of Present Illness: Neurology Consultation Note: Consult requested by Dr. Adam Mrs. Brown is a 73-year-old woman with a past medical history of HTN, HLD, DM, depression, and SLE (on Plaquenil), who developed confusion and speech difficulty about two nights ago. She was brought to the ED, where she had a potential stroke work-up, but was not in the time window for IV tPA. Non- contrast CT head, CTA of the head/neck and MRI of the brain did not show any acute infarct or acute findings. Labs showed hyperglycemia, hypokalemia, hypomagnesemia and hypocalcemia. She had a fever initially when she arrived, but currently is afebrile and has not had a fever since. Today, the patient is back to her baseline and has no deficits or complaints. The patient has no recollection of the events that transpired yesterday, but her family provided the history and informed me that she was confused, disoriented and had slurred speech. Review of Systems - Constitutional Constitutional: As Per HPI - EENT Eyes: absent: As Per HPI, Blind Spots, Blurred Vision, Change in Vision, Decreased Night Vision, Diplopia, Discharge, Dry Eye, Exophthalmos, Floaters, Irritation, Itchy Eyes, Loss of Peripheral Vision, Pain, Photophobia, Requires Corrective Lenses, Sees Flashes, Spots in Vision, Tunnel Vision, Other Visual Disturbances, Loss of Vision, Other Ears: absent: As Per HPI, Decreased Hearing, Ear Discharge, Ear Pain, Tinnitus, Abnormal Hearing, Disequilibrium, Dizziness, Other Nose/Mouth/Throat: absent: As Per HPI, Epistaxis, Nasal Congestion, Nasal Discharge, Nasal Obstruction, Nasal Trauma, Nose Pain, Post Nasal Drip, Sinus Pain, Sinus Pressure, Bleeding Gums, Change in Voice, Dental Pain, Dry Mouth, Dysphagia, Halitosis, Hoarsness, Lip Swelling, Mouth Lesions, Mouth Pain, Odynophagia, Sore Throat, Throat Swelling, Tongue Swelling, Facial Pain, Neck Pain, Neck Mass, Other - Cardiovascular Cardiovascular: absent: As Per HPI, Acrocyanosis, Chest Pain, Chest Pain at Rest, Chest Pain with Activity, Claudication, Diaphoresis, Dyspnea, Dyspnea on Exertion, Edema, Irregular Heart Rhythm, Pain Radiating to Arm/Neck/Jaw, Leg Edema, Leg Ulcers, Lightheadedness, Orthopnea, Palpitations, Paroxysmal Nocturnal Dyspnea, Pedal Edema, Radiating Pain, Rapid Heart Rate, Slow Heart Rate, Syncope, Other - Respiratory Respiratory: absent: As Per HPI, Cough, Dyspnea, Hemoptysis, Dyspnea on Exertion, Wheezing, Snoring, Stridor, Pain on Inspiration, Chest Congestion, Excessive Mucous Production, Change in Mucous Color, Pain with Coughing, Other - Gastrointestinal Gastrointestinal: absent: As Per HPI, Abdominal Pain, Belching, Bloating, Change in Bowel Habits, Change in Stool Character, Coffee Ground Emesis, Constipation, Cramping, Diarrhea, Dyspepsia, Dysphagia, Early Satiety, Excessive Flatus, Fecal Incontinence, Heartburn, Hematemesis, Hematochezia, Loose Stools, Melena, Nause a, Odynophagia, Temesmus, Vomiting, Other - Musculoskeletal Musculoskeletal: absent: As Per HPI, Abnormal Gait, Arthralgias, Atrophy, Back Pain, Deformity, Joint Swelling, Limited Range of Motion, Loss of Height, Muscle Cramps, Muscle Weakness, Myalgias, Neck Pain, Numbness, Radiating Pain into Limb, Stiffness, Tingling, Other - Integumentary Integumentary: absent: As Per HPI, Acne, Alopecia, Bleeding Lesions, Change in Hair, Change in Nails, Change in Pigmentation, Changing Lesions, Dry Skin, Erythema, Furuncle, Hirsutism, Lesions, New Lesions, Non-Healing Lesions, Photosensitivity, Pruritus, Rash, Skin Pain, Skin Ulcer, Sores, Striae, Swelling, Unusual Bruising, Wounds, Jaundice, Other - Neurological Neurological: As Per HPI - Psychiatric Psychiatric: absent: As Per HPI, Abnormal Sleep Pattern, Anhedonia, Anxiety, Auditory Hallucinations, Behavioral Changes, Change in Appetite, Change in Libido, Confusion, Depression, Difficulty Concentrating, Hallucinations, Homicidal Ideation, Hopelessness, Irritability, Memory Loss, Mood Swings, Panic Attacks, Paranoia, Suicidal Ideation, Visual Hallucinations, Tactile Hallucinations, Other - Endocrine Endocrine: absent: As Per HPI, Change in Body Appearance, Change in Libido, Cold Intolorance, Deepening of Voice, Excessive Sweating, Fatigue, Flushing, Heat Intolorance, Increase in Ring/Shoe/Hat Size, Palpitations, Polydipsia, Polyphagia, Polyuria, Other Past Patient History - Past Social History Smoking Status: Light Smoker < 10 Cigarettes Daily - CARDIAC Hx Pacemaker: No - NEUROLOGICAL Hx Paralysis: No - ENDOCRINE/METABOLIC Hx Endocrine Disorders: Yes Hx Diabetes Mellitus Type 2: Yes - HEMATOLOGICAL/ONCOLOGICAL Hx Blood Transfusions: No Hx Blood Transfusion Reaction: No - MUSCULOSKELETAL/RHEUMATOLOGICAL Hx Musculoskeletal Disorders: (LUPUS) - PSYCHIATRIC Hx Emotional Abuse: No Hx Physical Abuse: No Hx Substance Use: No - SURGICAL HISTORY Hx Surgeries: Yes (SEE ABOVE) - ANESTHESIA Hx Anesthesia Reactions: No Meds Allergies/Adverse Reactions: Allergies Allergy/AdvReac Type Severity Reaction Status Date / Time No Known Allergies Allergy Verified 06/20/18 01:05 - Medications Medications: Current Medications Acetaminophen (Tylenol 325mg Tab) 650 mg PO Q6 PRN PRN Reason: TEMP>=99.5F Acetaminophen (Tylenol 650 Mg Supp) 650 mg RC Q6H PRN PRN Reason: TEMP>=99.5F Acetylcysteine (Acetylcysteine 20%) 4 ml IH [id number] [facility] Last Admin: 06/21/18 07:52 Dose: 4 ml Aspirin (Aspirin Supp) 300 mg RC DAILY [facility] Last Admin: 06/21/18 10:23 Dose: 300 mg Atorvastatin Calcium (Lipitor) 10 mg PO DIN [facility] Last Admin: 06/20/18 17:37 Dose: Not Given Ezetimibe (Zetia) 10 mg PO HS [facility] Last Admin: 06/20/18 22:52 Dose: 10 mg Enoxaparin Sodium (Lovenox) 40 mg SC DAILY [facility]; Protocol Last Admin: 06/21/18 10:22 Dose: 40 mg Folic Acid (Folic Acid) 1 mg PO DAILY [facility] Last Admin: 06/21/18 10:22 Dose: 1 mg Hydroxychloroquine Sulfate (Plaquenil) 200 mg PO BID [facility]; Protocol Last Admin: 06/21/18 10:22 Dose: 200 mg Sodium Chloride (Sodium Chloride 0.9%) 1,000 mls @ 100 mls/hr IV .Q10H [facility] Last Admin: 06/21/18 10:44 Dose: 100 mls/hr Acyclovir 700 mg/ Sodium (Chloride) 100 mls @ 100 mls/hr IV Q8 [facility]; Protocol Last Admin: 06/21/18 06:00 Dose: 100 mls/hr Ceftriaxone Sodium (Rocephin 2 Gm Ivpb) 2 gm in 100 mls @ 100 mls/hr IVPB Q12 [facility]; Protocol Last Admin: 06/21/18 10:24 Dose: 100 mls/hr Ampicillin 2 gm/ Sodium (Chloride) 100 mls @ 200 mls/hr IVPB Q6 [facility]; Protocol Last Admin: 06/21/18 12:44 Dose: 200 mls/hr Vancomycin HCl (Vancomycin 1gm) 1 gm in 250 mls @ 167 mls/hr IVPB Q12H [facility]; Protocol Last Admin: 06/21/18 13:36 Dose: 167 mls/hr Potassium Phosphate 15 mmole/ (Sodium Chloride) 255 mls @ 42.5 mls/hr IVPB Q6H [facility] Stop: 06/21/18 20:59 Last Admin: 06/21/18 13:40 Dose: 42.5 mls/hr Insulin Human Lispro (Humalog Med) 0 units SC ACHS [facility]; Protocol Last Admin: 06/21/18 12:44 Dose: 1 unit Levalbuterol HCl (Xopenex) 0.63 mg IH [id number] [facility] Last Admin: 06/21/18 07:52 Dose: 0.63 mg Lorazepam (Ativan) 1 mg IVP Q6 PRN; Protocol PRN Reason: Agitation Last Admin: 06/20/18 10:31 Dose: 1 mg Nicotine (Nicoderm Cq) 1 patch TD DAILY [facility] Last Admin: 06/21/18 10:23 Dose: 1 patch [id number] Ethyl Esters (Lovaza) 1 gm PO BID [facility] Last Admin: 06/21/18 10:23 Dose: 1 gm Ondansetron HCl (Zofran Inj) 4 mg IVP Q4H PRN PRN Reason: Nausea/Vomiting Pantoprazole Sodium (Protonix Inj) 40 mg IVP DAILY [facility] Last Admin: 06/21/18 10:23 Dose: 40 mg Physical Exam - Constitutional Appears: Well - Head Exam Head Exam: ATRAUMATIC, NORMAL INSPECTION, NORMOCEPHALIC - Eye Exam Eye Exam: EOMI, Normal appearance, PERRL Pupil Exam: NORMAL ACCOMODATION, PERRL - ENT Exam ENT Exam: Mucous Membranes Moist, Normal Exam - Neck Exam Neck exam: Positive for: Normal Inspection - Respiratory Exam Respiratory Exam: Clear to Auscultation Bilateral, NORMAL BREATHING PATTERN - Cardiovascular Exam Cardiovascular Exam: REGULAR RHYTHM, +S1, +S2 - GI/Abdominal Exam GI & Abdominal Exam: Normal Bowel Sounds, Soft. absent: Tenderness - Extremities Exam Extremities exam: Positive for: normal inspection - Back Exam Back exam: NORMAL INSPECTION - Neurological Exam Neurological exam: Alert, Altered, CN II-XII Intact, Normal Gait, Oriented x3, Reflexes Normal - Psychiatric Exam Psychiatric exam: Normal Affect, Normal Mood - Skin Skin Exam: Dry, Intact, Normal Color, Warm Results - Vital Signs Recent Vital Signs: Last Vital Signs Temp 98.4 F 06/21/18 12:00 Pulse 80 06/21/18 12:00 Resp 18 06/21/18 12:00 BP 145/81 06/21/18 12:00 Pulse Ox 96 06/21/18 06:00 - Labs Result Diagrams: 06/21/18 06:00 06/21/18 06:00 Labs: Laboratory Results - last 24 hr 06/20/18 06/20/18 06/20/18 10:20 10:20 10:20 WBC RBC Hgb Hct MCV MCH MCHC RDW Plt Count MPV Neut % (Auto) Lymph % (Auto) Hodgeman % (Auto) Eos % (Auto) Baso % (Auto) Lymph # (Auto) Hodgeman # (Auto) Eos # (Auto) Baso # (Auto) Absolute Neuts (auto) Sodium Potassium Chloride Carbon Dioxide Anion Gap BUN Creatinine Est GFR ( Amer) Est GFR (Non-Af Amer) POC Glucose (mg/dL) Random Glucose Fructosamine 194 Calcium Phosphorus Magnesium Total Bilirubin Direct Bilirubin AST ALT Alkaline Phosphatase Troponin I Total Protein Albumin Globulin Albumin/Globulin Ratio Vitamin B12 384 Folate > 20.0 Procalcitonin < 0.05 L RPR Nonreactive HSV Source Description HSV (DFA) HIV 1&2 Ag/Ab, 4th Gen VZV Culture Viral Specimen Source 06/20/18 06/20/18 06/20/18 10:20 10:20 15:30 WBC RBC Hgb Hct MCV MCH MCHC RDW Plt Count MPV Neut % (Auto) Lymph % (Auto) Hodgeman % (Auto) Eos % (Auto) Baso % (Auto) Lymph # (Auto) Hodgeman # (Auto) Eos # (Auto) Baso # (Auto) Absolute Neuts (auto) Sodium Potassium Chloride Carbon Dioxide Anion Gap BUN Creatinine Est GFR ( Amer) Est GFR (Non-Af Amer) POC Glucose (mg/dL) Random Glucose Fructosamine Calcium Phosphorus Magnesium Total Bilirubin Direct Bilirubin AST ALT Alkaline Phosphatase Troponin I < 0.01 Total Protein Albumin Globulin Albumin/Globulin Ratio Vitamin B12 Folate Procalcitonin RPR HSV Source Description Serum, vial pour-off HSV (DFA) TNP HIV 1&2 Ag/Ab, 4th Gen Nonreactive VZV Culture TNP Viral Specimen Source TEST NOT PERFORMED 06/20/18 06/21/18 06/21/18 21:20 06:00 06:00 WBC 7.3 D RBC 3.66 Hgb 10.6 L Hct 32.1 L MCV 87.7 MCH 29.0 MCHC 33.0 RDW 13.8 Plt Count 182 MPV 10.2 Neut % (Auto) 86.9 H Lymph % (Auto) 8.5 L Hodgeman % (Auto) 3.8 Eos % (Auto) 0.7 L Baso % (Auto) 0.1 Lymph # (Auto) 0.6 L Hodgeman # (Auto) 0.3 Eos # (Auto) 0.1 Baso # (Auto) 0.01 Absolute Neuts (auto) 6.35 Sodium 139 Potassium 3.2 L Chloride 110 H Carbon Dioxide 21 Anion Gap 10 BUN 4 L Creatinine 0.6 L Est GFR ( Amer) > 60 Est GFR (Non-Af Amer) > 60 POC Glucose (mg/dL) 168 H Random Glucose 101 Fructosamine Calcium 8.1 L Phosphorus 2.4 L Magnesium 1.7 Total Bilirubin 0.6 Direct Bilirubin 0.2 AST 17 ALT 15 Alkaline Phosphatase 60 Troponin I Total Protein 5.5 L Albumin 3.2 Globulin 2.2 Albumin/Globulin Ratio 1.4 Vitamin B12 Folate Procalcitonin RPR HSV Source Description HSV (DFA) HIV 1&2 Ag/Ab, 4th Gen VZV Culture Viral Specimen Source 06/21/18 06/21/18 07:46 12:03 WBC RBC Hgb Hct MCV MCH MCHC RDW Plt Count MPV Neut % (Auto) Lymph % (Auto) Hodgeman % (Auto) Eos % (Auto) Baso % (Auto) Lymph # (Auto) Hodgeman # (Auto) Eos # (Auto) Baso # (Auto) Absolute Neuts (auto) Sodium Potassium Chloride Carbon Dioxide Anion Gap BUN Creatinine Est GFR ( Amer) Est GFR (Non-Af Amer) POC Glucose (mg/dL) 104 190 H Random Glucose Fructosamine Calcium Phosphorus Magnesium Total Bilirubin Direct Bilirubin AST ALT Alkaline Phosphatase Troponin I Total Protein Albumin Globulin Albumin/Globulin Ratio Vitamin B12 Folate Procalcitonin RPR HSV Source Description HSV (DFA) HIV 1&2 Ag/Ab, 4th Gen VZV Culture Viral Specimen Source Assessment & Plan (1) Acute encephalopathy Assessment and Plan: The patient is now back to baseline. She may have had toxic-metabolic encephalopathy due to infection. She was treated with antibiotics and this has resolved. Seizure is a differential as well. I recommend obtaining an EEG for further evaluation. The patient does not have a stroke based on MRI. Continue supportive care. Will consider AED if EEG is abnormal. Otherwise, no further recommendations. Thank you for this consultation. Status: Acute
[2018-06-21 15:49] LABS: FLUID TYPE SPINAL FLUID
[2018-06-21 16:12] LABS: CSF APPEARANCE CLEAR/COLORLESS (CLEAR); CSF VOLUME 2 mL (0-1)
--- NOTE | 2018-06-21 19:20 | CARD ---
APPROVED REPORT Date of service: 06/21/2018 EKG Measurement Heart [id number] <Conclusion> Normal sinus rhythm Prominant right precordial R waves- cannot exclude old TPMI Nonspecific ST and T wave abnormality CCR Abnormal ECG
--- NOTE | 2018-06-21 20:24 | CON ---
DATE: 06/21/2018 HISTORY OF PRESENT ILLNESS: Patient is a 73-year-old female who was admitted on 06/20/2018 for acute change in mental status. Patient is currently being evaluated for etiology, however, psychiatry was consulted to rule out depression. Patient has no prior psychiatric history. She has been fairly calm and apparently her spontaneity and alertness has improved overnight. She was unaware that the psychiatric consultation was called, however, she is agreeable to my visit. She denies having any prior psychiatric history including hospitalizations or suicide attempts. She does report having a history of taking psych meds, though she does not recall what any of them are. She denies any psychiatric complaints at this time or any major stressors except for her current medical condition. She cannot recall how she ended up in the hospital and reports that the time preceding the current admission has been hazy. She is cooperative, appears fairly related, although there were bizarre behaviors noted. She is not hallucinating during the course of our conversation. She knows that she is at [facility] and that , however she guesses that it is 2019. Patient reports a good relationship with her and her three children. Labs and vitals study results were reviewed. RELEVANT PSYCHIATRIC MEDICATIONS: On board are 1 mg of Ativan IV every 6 hours p.r.n. SOCIAL HISTORY: Patient was born and raised in [place]. She is . She has three children, two sons and one daughter. Reports a good relationship with her and her children. PSYCHIATRIC HISTORY: Patient denies any psychiatric hospitalizations or ever seeing a psychiatrist before, but has taken psychiatric medications in the past. Denies any history of suicide attempt. IMPRESSION: Altered mental status, rule out secondary to undetermined cause of delirium versus neurologic versus infectious disease causes. History of depression noncontributory at this time. Anxiety related to her current medical situation that appears to be rational and reasonable. RECOMMENDATIONS: There are no acute recommendations at this time from Psychiatry; however, we will continue to follow up with patient peripherally. Please re-consult p.r.n. Miguel Avila MD
[2018-06-21 22:08] LABS: MYCOPLASMA PNEUMONIAE IGM NEGATIVE (NEGATIVE)
[2018-06-22] MEDS: Vancomycin 1gm in NS 250ml 1 GM/250 ML BAG IVPB SCH ×2 (00:30→14:25)
[2018-06-22] MEDS: Levalbuterol 0.63 MG/3 ML Inhal Soln UD IH SCH ×4 (01:23→20:43)
[2018-06-22] MEDS: Acetylcysteine 20% Inhal Soln (4ml) IH SCH ×4 (01:23→20:43)
[2018-06-22] MEDS: Sodium Chloride 0.9% 1,000 ML IV SCH ×4 (03:30→23:40)
[2018-06-22] MEDS: AMPicillin 2 GM in Sodium Chloride 0.9% 100 ML IVPB SCH ×4 (05:38→23:31)
[2018-06-22 07:08] LABS: BASO # 0.02 K/mm3 (0.0-2.0); BASO % 0.5 % (0.0-3.0); EOS # 0.2 (0.0-0.7); EOS % 3.9 % (1.5-5.0); HEMOGLOBIN 10.9 g/dL (12.0-16.0); LYMPH # 0.8 (1.2-3.4); LYMPH % 17.2 % (22.0-35.0); MEAN CELL VOLUME 87.5 fl (80.0-105.0); MEAN CORPUSCULAR HEMOGLOBIN 28.5 pg (25.0-35.0); MEAN CORPUSCULAR HGB CONC 32.5 g/dl (31.0-37.0); MEAN PLATELET VOLUME 10.3 fl (7.0-11.0); MONO # 0.4 (0.1-0.6); MONO % 7.9 % (1.0-6.0); RBC 3.83 10^6/uL (3.5-6.1); RED CELL DISTRIBUTION WIDTH 13.8 % (11.5-14.5); WHITE BLOOD COUNT 4.4 10^3/uL (4.5-11.0)
[2018-06-22 07:40] LABS: ALB/GLOB RATIO 1.4 (1.1-1.8); ALBUMIN 3.3 g/dL (3.0-4.8); ALT/SGPT 23 U/L (7-56); AST/SGOT 17 U/L (14-36); BILIRUBIN,DIRECT 0.2 mg/dL (0.0-0.4); BLOOD UREA NITROGEN 4 mg/dL (7-21); CALCIUM 8.1 mg/dL (8.4-10.5); GFR NON-AFRICAN AMERICAN > 60
--- NOTE | 2018-06-22 08:16 | CP.PCM.PN ---
Subjective - Date & Time of Evaluation Date of Evaluation: 06/22/18 Time of Evaluation: 07:45 - Subjective Subjective: (covering for Dr. Adam) Patient is seen this morning. She states that she sees things in front of her that are not there, such as a bookcase. Objective - Vital Signs/Intake and Output Vital Signs (last 24 hours): Temp Pulse Resp BP Pulse Ox 98.6 F 78 20 148/82 96 06/22/18 06:00 06/22/18 06:00 06/22/18 06:00 06/22/18 06:00 06/22/18 06:00 Intake and Output: 06/22/18 06/22/18 06:59 18:59 Intake Total 1390 Output Total 850 Balance 540 - Medications Medications: Current Medications Acetaminophen (Tylenol 325mg Tab) 650 mg PO Q6 PRN PRN Reason: TEMP>=99.5F Acetaminophen (Tylenol 650 Mg Supp) 650 mg RC Q6H PRN PRN Reason: TEMP>=99.5F Acetylcysteine (Acetylcysteine 20%) 4 ml IH [id number] [facility] Last Admin: 06/22/18 07:36 Dose: 4 ml Aspirin (Aspirin Supp) 300 mg RC DAILY [facility] Last Admin: 06/21/18 10:23 Dose: 300 mg Atorvastatin Calcium (Lipitor) 10 mg PO DIN [facility] Last Admin: 06/21/18 18:09 Dose: 10 mg Ezetimibe (Zetia) 10 mg PO HS [facility] Last Admin: 06/21/18 21:54 Dose: 10 mg Enoxaparin Sodium (Lovenox) 40 mg SC DAILY [facility]; Protocol Last Admin: 06/21/18 10:22 Dose: 40 mg Folic Acid (Folic Acid) 1 mg PO DAILY [facility] Last Admin: 06/21/18 10:22 Dose: 1 mg Hydroxychloroquine Sulfate (Plaquenil) 200 mg PO BID [facility]; Protocol Last Admin: 06/21/18 18:09 Dose: 200 mg Sodium Chloride (Sodium Chloride 0.9%) 1,000 mls @ 100 mls/hr IV .Q10H [facility] Last Admin: 06/22/18 05:36 Dose: 100 mls/hr Acyclovir 700 mg/ Sodium (Chloride) 100 mls @ 100 mls/hr IV Q8 [facility]; Protocol Last Admin: 06/22/18 07:23 Dose: 100 mls/hr Ceftriaxone Sodium (Rocephin 2 Gm Ivpb) 2 gm in 100 mls @ 100 mls/hr IVPB Q12 [facility]; Protocol Last Admin: 06/21/18 21:53 Dose: 100 mls/hr Ampicillin 2 gm/ Sodium (Chloride) 100 mls @ 200 mls/hr IVPB Q6 [facility]; Protocol Last Admin: 06/22/18 05:38 Dose: 200 mls/hr Vancomycin HCl (Vancomycin 1gm) 1 gm in 250 mls @ 167 mls/hr IVPB Q12H [facility]; Protocol Last Admin: 06/22/18 00:30 Dose: 167 mls/hr Insulin Human Lispro (Humalog Med) 0 units SC ACHS [facility]; Protocol Last Admin: 06/21/18 21:54 Dose: Not Given Levalbuterol HCl (Xopenex) 0.63 mg IH [id number] [facility] Last Admin: 06/22/18 07:36 Dose: 0.63 mg Lorazepam (Ativan) 1 mg IVP Q6 PRN; Protocol PRN Reason: Agitation Last Admin: 06/20/18 10:31 Dose: 1 mg Nicotine (Nicoderm Cq) 1 patch TD DAILY [facility] Last Admin: 06/21/18 10:23 Dose: 1 patch [id number] Ethyl Esters (Lovaza) 1 gm PO BID [facility] Last Admin: 06/21/18 18:09 Dose: 1 gm Ondansetron HCl (Zofran Inj) 4 mg IVP Q4H PRN PRN Reason: Nausea/Vomiting Pantoprazole Sodium (Protonix Inj) 40 mg IVP DAILY [facility] Last Admin: 06/21/18 10:23 Dose: 40 mg - Labs Labs: 06/22/18 06:00 06/22/18 06:00 PT 12.6 SECONDS (9.4-12.5) H 06/20/18 01:15 INR 1.14 06/20/18 01:15 APTT 34.9 Seconds (26.9-38.3) 06/20/18 01:15 - Constitutional Appears: No Acute Distress - Head Exam Head Exam: ATRAUMATIC, NORMOCEPHALIC - Respiratory Exam Respiratory Exam: Clear to Ausculation Bilateral, NORMAL BREATHING PATTERN - Cardiovascular Exam Cardiovascular Exam: +S1, +S2 - GI/Abdominal Exam GI & Abdominal Exam: Soft, Normal Bowel Sounds. absent: Tenderness - Neurological Exam Neurological Exam: Alert, Awake Assessment and Plan - Assessment and Plan (Free Text) Assessment: AMS DMII H/O Lupus Hypokalemia Plan: Patient is seen this morning. She complains of visual hallucinations. She has no other complaints. Infectious disease on case. WBC count has decreased. r/o sepsis vs. SIRS vs. meningitis vs. encephalitis. Patient appears to be on empiric treatment for meningitis. Lumbar puncture has been performed. Awaiting results of CSF. Physical therapy evaluation is pending. MRI shows white matter changes. EEG is pending. Will replace potassium.
[2018-06-22] MEDS ORDERED: Potassium Chloride 20 mEq ER Tab PO ONE (08:17)
[2018-06-22] MEDS: Insulin Lispro (humaLOG) MEDIUM Coverage SC SCH ×4 (08:40→22:12)
--- NOTE | 2018-06-22 09:07 | CARD ---
APPROVED REPORT Date of service: 06/22/2018 EKG Measurement Heart [id number] <Conclusion> Normal sinus rhythm ST & T wave abnormality, consider anterior ischemia Prolonged QT Abnormal ECG
[2018-06-22] MEDS: Enoxaparin 40 mg Syringe SC SCH (09:12)
[2018-06-22] MEDS: cefTRIAXone 2 GM IN NS 2 GM/100 ML BAG IVPB SCH ×2 (09:18→22:11)
[2018-06-22] MEDS: Omega-3-Acid Ethyl Esters 1 GM Cap PO SCH ×2 (09:18→19:06)
--- NOTE | 2018-06-22 20:36 | PN ---
DATE: 06/22/2018 SUBJECTIVE: The patient was seen earlier today in room 363, bed 2. No fevers and no chills. Uneventful night. She was awake and alert, however, she did have problems communicating, she was not quite sure what year it was, clearly periods of confusion is present. PHYSICAL EXAMINATION VITAL SIGNS: Temperature of 98. She did have a temperature of 102.3 on admission. Blood pressure is 150/90, respiratory rate of 20, heart rate of 91. HEENT: Unremarkable. NECK: Supple. HEART: Normal S1, S2. LUNGS: Decreased breath sounds. ABDOMEN: Soft, nontender, no organomegaly, no rebound, no guarding, no masses. LABORATORY DATA: Reveals a white count of 4.4, hemoglobin of 10 and platelets of 199. BUN of 4, creatinine of 0.5, and also a glucose of 142. Urinalysis is noted and CSF is noted. HSV 1 and 2 and PCR is pending. CSF culture is no growth at 24 hours. negative. Blood cultures are negative. Urine cultures are negative. ASSESSMENT AND PLAN: A 73-year-old with systemic inflammatory response syndrome, rule out meningitis, rule out encephalitis; dyslipidemia, lupus, depression, hypertension, diabetes. Review of orders reveal the patient to be on vancomycin, ampicillin, ceftriaxone, acyclovir. We will check on the final culture results, herpes, encephalitis workup result, PCR. MRI of brain is reviewed. It was done without contrast. Multifocal subcortical deep and periventricular white matter changes are strictly nonspecific. We will follow closely with you. Continue the present course. David Guillaume MD
[2018-06-23] MEDS: Vancomycin 1gm in NS 250ml 1 GM/250 ML BAG IVPB SCH ×2 (00:30→12:55)
[2018-06-23] MEDS: Acetylcysteine 20% Inhal Soln (4ml) IH SCH ×4 (01:44→19:30)
[2018-06-23] MEDS: Levalbuterol 0.63 MG/3 ML Inhal Soln UD IH SCH ×4 (01:44→19:30)
[2018-06-23] MEDS: Sodium Chloride 0.9% 1,000 ML IV SCH ×2 (06:34→10:27)
[2018-06-23] MEDS: AMPicillin 2 GM in Sodium Chloride 0.9% 100 ML IVPB SCH ×2 (06:35→12:58)
[2018-06-23 07:01] LABS: BASO # 0.03 K/mm3 (0.0-2.0); BASO % 0.6 % (0.0-3.0); EOS # 0.3 (0.0-0.7); EOS % 5.1 % (1.5-5.0); HEMOGLOBIN 11.4 g/dL (12.0-16.0); LYMPH # 1.1 (1.2-3.4); LYMPH % 21.6 % (22.0-35.0); MEAN CELL VOLUME 88.4 fl (80.0-105.0); MEAN CORPUSCULAR HEMOGLOBIN 28.2 pg (25.0-35.0); MEAN CORPUSCULAR HGB CONC 31.9 g/dl (31.0-37.0); MEAN PLATELET VOLUME 10.5 fl (7.0-11.0); MONO # 0.3 (0.1-0.6); MONO % 6.6 % (1.0-6.0); RBC 4.04 10^6/uL (3.5-6.1); WHITE BLOOD COUNT 5.1 10^3/uL (4.5-11.0)
[2018-06-23 07:24] LABS: ALB/GLOB RATIO 1.5 (1.1-1.8); ALBUMIN 3.7 g/dL (3.0-4.8); ALT/SGPT 22 U/L (7-56); AST/SGOT 20 U/L (14-36); BILIRUBIN,DIRECT 0.2 mg/dL (0.0-0.4); BLOOD UREA NITROGEN 7 mg/dL (7-21); CALCIUM 8.5 mg/dL (8.4-10.5); GFR NON-AFRICAN AMERICAN > 60
[2018-06-23] MEDS ORDERED: Potassium Chloride 20 mEq ER Tab PO ONE (07:26)
[2018-06-23] MEDS: Insulin Lispro (humaLOG) MEDIUM Coverage SC SCH ×4 (08:06→21:45)
--- NOTE | 2018-06-23 09:00 | HP ---
DATE OF EXAM: 06/20/2018 HISTORY OF PRESENT ILLNESS: The patient is a 73-year-old female who came to the [facility] emergency room today in the surgical supervisor hours with questionable altered mental status. Initially, the patient was found to be having difficulty speaking and the patient was counseled and the patient was found to be lethargic. Initially in the emergency room, code stroke was called and hospitalist was contacted. The patient underwent the entire code stroke protocol, which was found to be negative for any stroke. The patient was also found to have high-grade fever of 102. The patient was seen and examined in the Cardiology area. The patient was now completely awake, alert, responsive, oriented to person, place, but not able to state correct date and month. The patient follows simple commands. The patient was seen and evaluated in the Cardiology area. Recent vital signs and diagnostic data since this morning admission was reviewed. IMPRESSION AND PLAN: 1. Altered mental status versus toxic metabolic encephalopathy versus questionable brief catatonic state with confusion. 2. High-grade fever of 102 degrees Fahrenheit. 3. Hypotension. 4. Acute confusional state. 5. Questionable anterior ischemia as per the EKG. 6. Leukocytosis with granulocytosis. 7. Mild normocytic anemia. 8. Hypokalemia. 9. Hypomagnesemia. 10. History of hypothyroidism. 11. History of type 2 diabetes mellitus. 12. Ketonuria. 13. Bacteriuria. 14. Status post CTA of the head and neck. 15. Left carotid bifurcation calcified plaque. 16. Mild vascular and interstitial congestion secondary to possible interstitial lung disease secondary to nicotine addiction and chronic obstructive pulmonary disease. 17. Questionable anxiety disorder. 18. Questionable drug overdose versus withdrawal. 19. History of depression. 20. History of hypertension. 21. History of hyperlipidemia. 22. Hypertriglyceridemia. 23. History of active nicotine addiction dependence. Plan at this time, the patient is admitted to telemetry. The patient has been requested Neurology, Cardiology, and Psychiatry consultation. CURRENT MEDICATIONS: The patient is on Mucomyst, Xopenex nebulizer treatment. The patient has been started empirically on acyclovir 700 mg IV every 8 hours, ampicillin 2 g IV every 6 hours, aspirin suppository 300 mg daily, Ativan 1 mg IV every 6 hours p.r.n., folic acid 1 mg daily, Humalog sliding scale coverage, Lipitor 10 mg daily, Lovaza 1 g twice a day, Lovenox 40 mg subcutaneously daily for DVT prophylaxis, and nicotine patch 21 mg daily. The patient is also taking Plaquenil 200 b.i.d. for history of questionable rheumatoid arthritis with early lupus. The patient has been given potassium supplementation for hypokalemia. The patient is on Rocephin 2 g IV daily, which would be discontinued once ampicillin is started. Toprol-XL 50 mg daily, Tylenol p.o. suppository every 6 hours p.r.n., Xopenex nebulizer 0.63 every 6 hours, Zetia 10 mg daily, and Zofran 4 mg IV every 4 hours p.r.n. At this time, the patient is admitted to telemetry, awaiting for a telemetry bed. The patient was seen and examined in the Cardiology area, awaiting for echocardiogram. The patient is also seen in stretcher number [id number] in the emergency room. At present, the patient's overall prognosis is guarded. Further, the patient has also requested speech and swallow evaluation. The patient has been ordered neuro check and seizure precautions. The patient has been ordered serial labs. The patient has been ordered MRI of the brain. Echo with Doppler with bubble study. The patient has been awaiting Neurology, Cardiology, Infectious Disease evaluation, and Psychiatry evaluation. Dictated and electronically signed, not read. Tomas Adam MD
--- NOTE | 2018-06-23 09:37 | PROCN ---
DATE: 06/21/2018 SPINAL TAP PROCEDURE A 73-year-old female with past medical history of hypertension, diabetes, depression, and SLE. The patient became confused and came to the emergency room. CAT scan of the head was done which was negative. No infarct. Spinal tap was ordered which was done. Fluid was clear and sent for CSF analysis. We will follow up. The patient tolerated the procedure well. Gordo Grigsby MD
[2018-06-23] MEDS: cefTRIAXone 2 GM IN NS 2 GM/100 ML BAG IVPB SCH ×2 (10:26→21:56)
[2018-06-23] MEDS: Enoxaparin 40 mg Syringe SC SCH (10:26)
[2018-06-23] MEDS: Omega-3-Acid Ethyl Esters 1 GM Cap PO SCH ×2 (10:27→18:17)
--- NOTE | 2018-06-23 10:38 | PN ---
DATE: 06/23/2018 SUBJECTIVE: The patient is in room 263, bed 2. Overnight nurse's notes were reviewed. The patient was mostly found to be alert, awake, oriented x3. The patient was not altered and no encephalopathy or disorientation was noted for most of the part. No adverse events documented, reported or called for. PHYSICAL EXAMINATION: VITAL SIGNS: In the last 24 hours T-max 98.2. Telemetry normal sinus rhythm, heart rate 71 to 85, blood pressure 146/83, 157/73, respirations 20, O2 sat 98%. HEENT: Head examination normocephalic, atraumatic. HEENT examination shows pinkish pale conjunctivae. Anicteric sclerae. No oropharyngeal lesion. No neck rigidity. CHEST: Kyphosis. LUNGS: Examination shows no audible crackle, rales or wheezing. CARDIOVASCULAR: S1, S2, regular rhythm, questionable soft systolic murmur at left sternal border, right second intercostal space, left second intercostal space. ABDOMEN: Soft, positive bowel sound, no palpable hepatosplenomegaly. GENITALIA: Female. RECTAL: Examination is deferred. EXTREMITY: Shows no pitting edema, no calf tenderness, no Homans' sign. NEUROLOGIC: The patient is alert, awake, oriented x3, is able to recall her name, my name, place, year, date, month, follows commands, moves upper and lower extremity without assistance. Gait examination is not tested. VASCULAR: Palpable pulses. PSYCHIATRIC: Negative for anxiety or depression. Negative for auditory or visual hallucination. Negative for suicidal or homicidal ideation. DIAGNOSTICS: During this hospitalization was removed. The patient's lab data from 06/23/2018, WBC 5.2, hemoglobin and hematocrit 11.4 and 35.7, platelet 270. Sodium 144, potassium 3.6 which is low normal, chloride 112, CO2 of 23, BUN 7, creatinine 0.6, glucose 133, calcium 8.5, phosphorus 3.9, magnesium 2.1. IMPRESSION: 1. Acute altered mental status or acute encephalopathy, etiology undetermined. 2. Leukopenia. 3. Status post spinal tap. 4. Hypophosphatemia. 5. Ketonuria. 6. Microscopic hematuria. 7. Bacteriuria. 8. Left ventricular ejection fraction of 63% with hypertensive cardiovascular disease. 9. Grade 1 abnormal relaxation pattern. 10. Systemic inflammatory response syndrome. 11. Encephalopathy. 12. Questionable encephalitis. 13. Questionable delirium. 14. History of depression. 15. History of hypothyroidism. 16. History of hyperlipidemia. 17. History of type 2 diabetes mellitus. 18. Mild normocytic anemia with granulocytosis. 19. Hypokalemia. PLAN: At this time, the patient is to be continued with close followup with Neurology, Cardiology, Infectious Disease, Psychiatry. The patient will be continued on all the medications as per the MAR of today. The patient is on IV ampicillin, IV Rocephin, IV vancomycin, IV acyclovir. We are awaiting further recommendation from Infectious Disease, Neurology, Cardiology, Psychiatry regarding further inpatient treatment management. We are also awaiting recommendation by Infectious Disease regarding duration of intravenous antibiotics and then also recommendations for switching over to p.o. antibiotics. The patient has been ordered out of bed to chair, physical therapy, occupational therapy, ambulation therapy, gait training. The patient's further management will be dependent upon the above details discussed above. The patient and the patient's have been updated about the patient's condition, diagnosis, test results in detail in layman's language. All questions concerned answered to the patient's . Dictated and electronically signed, not read. Tomas Adam MD
--- NOTE | 2018-06-23 13:36 | PCM.EEG ---
Electroencephalogram Report - Electroencephalogram Report Procedure Date: 06/21/18 Medication: Acycolvir, ASA, Cefriaxone. Interpretation: Technical Information: This was a 16 -channel EEG, 1-channel EKG routine EEG performed using an [employer] machine. Electrodes were applied using the 10/20 international placement system. Start; ; End; Total 48 min. Clinical Information: syncope. During resting wakefulness there was a symmetric posterior dominant rhythm at 8 Hz, 30-50 uV, which was reactive to eye opening and closing. Drowsiness (19;37) was associated with fragmentation of the posterior dominant rhythm and with slow roving eye movements. Light sleep was not recorded. Hyperventilation was performed no changes in the record. Photic stimulation was performed and there were no changes on the record. Focal abnormality; none ECG was associated with a normal sinus rhythm. Impression: This is a normal awake and drowsy electroencephalogram.
--- NOTE | 2018-06-23 14:38 | CON ---
DATE OF CONSULTATION: 06/23/2018 CARDIOLOGY CONSULTATION HISTORY: The patient is a 73-year-old woman, who presents with altered mental status. This has since resolved. PAST MEDICAL HISTORY: The patient's past medical history includes history of lupus erythematosus. In addition, she suffers from hypertension, diabetes mellitus, and hypercholesterolemia. She has had no previous cardiac history in the past. No previous myocardial infarction. SOCIAL HISTORY: The patient does not smoke. REVIEW OF SYSTEMS: Fourteen-point review of systems is reviewed in detail. No cardiac symptomatology is noted. PHYSICAL EXAMINATION: VITAL SIGNS: Blood pressure is 142/84, the heart rate is in the 70s. NECK: Negative JVD. LUNGS: Without rales. CARDIAC: Heart rate S1, S2. EXTREMITIES: Without edema. LABORATORY DATA: Hemoglobin is 11.4. Chemistries, BUN and creatinine are unremarkable with a glucose of 133. Troponins are negative. Echocardiogram revealed good LV function. EKG shows nonspecific ST-T changes. IMPRESSION: 1. Altered mental status, which has now resolved. 2. Diabetes mellitus. 3. Hypertension. 4. Hypercholesterolemia. 5. History of lupus erythematosus. 6. Anemia. 7. No active cardiac issues at this time. PLAN: Given these findings, we will discontinue DC telemetry today. Awaiting a full neurologic workup. John Hernandes MD
--- NOTE | 2018-06-23 18:15 | CP.PCM.PCO ---
Additional Comments - Additional Comments Additional Comments: Mycoplama Pneumoniae positive continue Rocephin, will await further recs as per ID
--- NOTE | 2018-06-23 18:37 | CP.PCM.PCO ---
Physician Communication Note - Physician Communication Note Physician Communication Note: CSF results pending
--- NOTE | 2018-06-23 20:54 | PN ---
DATE: 06/23/2018 SUBJECTIVE: The patient is seen earlier in room 567, bed 2. No fevers. No chills. PHYSICAL EXAMINATION: VITAL SIGNS: Temperature is 98, blood pressure is 140/80, respiratory rate of 20, heart rate of 71. HEENT: Unremarkable. NECK: Supple. LUNGS: Have decreased breath sounds. HEART: Normal S1 and S2. ABDOMEN: Soft. LABORATORY EXAMINATION: Reveals the patient's white count is 5. Coagulation is noted. Chemistries reveal creatinine 0.6. Urinalysis is noted. In CSF, wbc is 1. Cryptococcus antigen is negative. CSF, protein is 57, glucose is 85. Serology reveals that the herpes PCR is pending. Microbiology reveals the CSF cultures have no growth. Kelsie ink is negative. Fungal cultures have no fungal elements. Blood cultures are negative. Review of orders reveals the patient to be on ampicillin, ceftriaxone, vancomycin and acyclovir. Gram stain of the CSF, no organisms are seen.. Blood cultures are negative. ASSESSMENT AND PLAN: A 73-year-old female with systemic inflammatory response syndrome, rule out meningitis with a negative cerebrospinal fluid findings and encephalitis. The patient was confused, dyslipidemia, lupus, hypertension. On ceftriaxone and acyclovir. We will discontinue the vancomycin. We will continue the acyclovir. Pending cerebrospinal fluid polymerase chain reaction. We will also discontinue the ampicillin since the cerebrospinal fluid cultures are negative for bacteria and discontinue the vancomycin. We will continue ceftriaxone and acyclovir for now. Case was discussed with . . David Guillaume MD
[2018-06-24] MEDS: Sodium Chloride 0.9% 1,000 ML IV SCH ×2 (00:05→17:11)
[2018-06-24] MEDS: Levalbuterol 0.63 MG/3 ML Inhal Soln UD IH SCH ×4 (01:43→20:10)
[2018-06-24] MEDS: Acetylcysteine 20% Inhal Soln (4ml) IH SCH ×4 (01:43→20:10)
[2018-06-24 07:15] LABS: BASO # 0.05 K/mm3 (0.0-2.0); BASO % 0.9 % (0.0-3.0); EOS # 0.3 (0.0-0.7); EOS % 6.1 % (1.5-5.0); HEMOGLOBIN 11.2 g/dL (12.0-16.0); LYMPH # 1.4 (1.2-3.4); LYMPH % 25.4 % (22.0-35.0); MEAN CELL VOLUME 88.1 fl (80.0-105.0); MEAN CORPUSCULAR HEMOGLOBIN 28.3 pg (25.0-35.0); MEAN CORPUSCULAR HGB CONC 32.1 g/dl (31.0-37.0); MEAN PLATELET VOLUME 10.3 fl (7.0-11.0); MONO # 0.5 (0.1-0.6); MONO % 9.3 % (1.0-6.0); RBC 3.96 10^6/uL (3.5-6.1); RED CELL DISTRIBUTION WIDTH 13.8 % (11.5-14.5); WHITE BLOOD COUNT 5.6 10^3/uL (4.5-11.0)
[2018-06-24 07:40] LABS: ALB/GLOB RATIO 1.5 (1.1-1.8); ALBUMIN 3.6 g/dL (3.0-4.8); ALT/SGPT 26 U/L (7-56); AST/SGOT 26 U/L (14-36); BILIRUBIN,DIRECT 0.2 mg/dL (0.0-0.4); BLOOD UREA NITROGEN 7 mg/dL (7-21); CALCIUM 8.8 mg/dL (8.4-10.5); GFR NON-AFRICAN AMERICAN > 60
[2018-06-24] MEDS: Insulin Lispro (humaLOG) MEDIUM Coverage SC SCH ×4 (08:08→21:59)
[2018-06-24] MEDS: cefTRIAXone 2 GM IN NS 2 GM/100 ML BAG IVPB SCH (10:00)
[2018-06-24] MEDS: Enoxaparin 40 mg Syringe SC SCH (10:00)
[2018-06-24] MEDS: Omega-3-Acid Ethyl Esters 1 GM Cap PO SCH ×2 (10:01→17:10)
[2018-06-24 14:08] LABS: SPECIMEN SOURCE Serum
--- NOTE | 2018-06-24 16:40 | PN ---
DATE: 06/24/2018 SUBJECTIVE: The patient is in bed in no acute distress, nontoxic. PHYSICAL EXAMINATION VITAL SIGNS: On exam temperature is 98, blood pressure is 150/70 and respiratory rate 18. HEENT: Unremarkable. NECK: Supple. LUNGS: Have decreased breath sounds. HEART: Normal S1 and S2. ABDOMEN: Soft and nontender. LABORATORY EXAMINATION: Reveals the patient's white count of 5000 and hemoglobin of 11. BUN of 7 and creatinine of 0.6. Urinalysis is noted. The DNA PCR still pending. Microbiology reveals the CSF cultures are no growth at 3 days. ASSESSMENT AND PLAN: This is a 73-year-old female who was seen this morning she is awake and alert and negative cerebrospinal fluid, but did not have meningitis; however, herpes encephalitis is a concern still with acyclovir awaiting for HSV PCR. Case discussed with . Cerebrospinal fluid PCR is pending and mycoplasma IgG is of no significance in this patient, was indicative of old disease. We will discontinue the ceftriaxone. We will continue with the acyclovir pending cerebrospinal fluid. David Guillaume MD
--- NOTE | 2018-06-24 17:37 | PN ---
DATE: 06/24/2018 SUBJECTIVE: The patient is now moved to 567, bed 2. Overnight nurse's notes were reviewed. No evidence of altered mental status, confusion encephalopathy was noted. The patient states that she is feeling back to baseline. PHYSICAL EXAMINATION VITAL SIGNS: T-max 98.9, heart rate 69, blood pressure 154/77, respirations 18, O2 sat 95%. HEENT: Head: Normocephalic, atraumatic. HEENT examination shows pink conjunctivae. Anicteric sclerae. No oropharyngeal lesion. NECK: No neck rigidity. CHEST: Kyphosis. LUNGS: Show no audible crackles, rales or wheezing. Occasional rhonchi noted upper lung brennan. CARDIOVASCULAR: S1 and S2, regular rhythm. Questionable soft systolic murmur left sternal border, right second intercostal space, left second intercostal space. ABDOMEN: Soft, positive bowel sounds. GENITALIA: Female. RECTAL: Deferred. EXTREMITIES: Show no pitting edema, no calf tenderness, no Homans' sign. NEUROLOGIC: The patient is alert, awake, oriented x3, is able to move upper and lower extremities without assistance. Gait examination is not tested. VASCULAR: Palpable pulses. DIAGNOSTICS: From today; WBC 5.6, hemoglobin and hematocrit 11.2 and 34.9, platelets 208. Sodium 143, potassium 4.0, chloride 107, CO2 of 25, BUN 7, creatinine 0.6, glucose 137, calcium 8.8, phosphorus 4.0, magnesium 2.1. LFTs are within normal limits. EEG was negative. IMPRESSION 1. Altered mental status with acute encephalopathy, etiology undetermined. 2. Questionable encephalitis. 3. Systemic inflammatory response syndrome. 4. Mild normocytic anemia. 5. Granulocytosis. 6. Hypokalemia. 7. Hypophosphatemia. 8. Ketonuria. 9. Microscopic hematuria, bacteriuria. 10. Grade 1 abnormal relaxation pattern with left ventricular ejection fraction of 63%. 11. Questionable delirium. 12. History of depression. 13. Deconditioning. 14. Gait dysfunction. 15. History of hypertension, hyperlipidemia, hypertriglyceridemia. 16. History of hypothyroidism. 17. History of depression. PLAN: At this time, the patient will be continued on IV Rocephin, IV acyclovir as per Infectious Disease recommendation. We are awaiting herpes simplex CSF PCR which will determine the patient's duration of IV antibiotic and further treatment as per the Infectious Disease recommendation. The patient will be continued on all the therapeutic intervention as per the MAR of today. The patient has also been ordered pharmacological, non-pharmacological GI and DVT prophylaxis. The patient has been ordered out of bed to chair, physical therapy, ambulation therapy, gait training. The patient has been updated about the patient's condition that has been planned treatment management, need for further evaluation, recommendation by Infectious Disease, Neurology and other consultants, which she acknowledged to understand. Dictated and electronically signed, not read. Tomas Adam MD
[2018-06-25] MEDS: Levalbuterol 0.63 MG/3 ML Inhal Soln UD IH SCH ×4 (01:18→20:40)
[2018-06-25] MEDS: Acetylcysteine 20% Inhal Soln (4ml) IH SCH ×4 (01:18→20:40)
[2018-06-25] MEDS: Insulin Lispro (humaLOG) MEDIUM Coverage SC SCH ×3 (07:37→16:54)
[2018-06-25] MEDS: Pantoprazole 40 mg EC Tab PO SCH (09:28)
[2018-06-25] MEDS: Enoxaparin 40 mg Syringe SC SCH (09:28)
[2018-06-25] MEDS: Omega-3-Acid Ethyl Esters 1 GM Cap PO SCH ×2 (09:28→17:33)
--- NOTE | 2018-06-25 09:33 | PN ---
DATE: 06/25/2018 CARDIOLOGY FOLLOWUP SUBJECTIVE: The patient is awake and alert. PHYSICAL EXAMINATION: VITAL SIGNS: Blood pressure is 165/92 and heart rates in the 60s. NECK: Negative JVD. LUNGS: Without rales. HEART: Reveals S1 and S2. EXTREMITIES: Without edema. LABORATORY DATA: Hemoglobin is 11.2. Chemistries, glucose is 137. IMPRESSION: 1. Status post altered mental status which has now resolved. 2. Diabetes mellitus. 3. Hypertension. 4. Hypercholesterolemia. 5. History of lupus erythematosus. There is no active cardiac issues at this time. Overall LV function is normal. John Hernandes MD
[2018-06-25] MEDS: Sodium Chloride 0.9% 1,000 ML IV SCH (10:35)
--- NOTE | 2018-06-25 10:37 | CP.PCM.PCO ---
Physician Communication Note - Physician Communication Note Physician Communication Note: MRI Brain with contrast r/o herpatic encephalitis as per Dr. Guillaume
--- NOTE | 2018-06-25 12:53 | PN ---
DATE: 06/25/2018 SUBJECTIVE: The patient is seen lying in the bed in room 567, bed 2. The patient is comfortable, awake and responsive. The patient's overnight nurse's notes were reviewed. The patient stayed comfortable with alert, awake and oriented x3. PHYSICAL EXAMINATION VITAL SIGNS: T-max 98.7, heart rate 63-73, blood pressure ranging from 129/70, 154/77, 165/92 and 167/85, respirations 16 to 18 and O2 sat 97% to 100%. HEENT: Head examination normocephalic and atraumatic. HEENT examination shows pink conjunctivae. Anicteric sclerae. No oropharyngeal lesion. No neck rigidity. CHEST: Kyphosis. LUNGS: Shows occasional rhonchi upper lung brennan anteriorly. CARDIOVASCULAR: S1 and S2, questionable soft systolic murmur left sternal border, right second intercostal space, left second intercostal space. ABDOMEN: Soft, positive bowel sound. No palpable hepatosplenomegaly. GENITALIA: Female. RECTAL: Examination is deferred. EXTREMITIES: Shows no pitting edema, no calf tenderness, no Homans' sign. NEUROLOGIC: The patient is alert, awake and oriented x3. She is able to move upper and lower extremity without assistance. Gait examination is not tested. VASCULAR: Palpable pulses. DIAGNOSTICS: From June 25, fingerstick blood sugar 137, 150, 133, 271 and 137. Microbiology; fungal cultures from the CSF. CSF Gram stain negative. CSF Kelsie ink negative. IMPRESSION: 1. Acute altered mental status and acute encephalopathy with transient catatonic state (resolved). 2. Questionable encephalitis. 3. Questionable systemic inflammatory response syndrome with fever. 4. Hypertension. 5. Tachycardia. 6. Leukocytosis with granulocytosis. 7. Transient neutropenia. 8. Mild normocytic anemia. 9. Noninsulin-requiring diabetes mellitus with hemoglobin A1c of 6.3. 10. Hypokalemia. 11. Hyperglycemia. 12. Hypophosphatemia. 13. Mild protein malnutrition. 14. Hypomagnesemia. 15. History of nicotine addiction and dependence. 16. History of hyperlipidemia and hypertriglyceridemia. 17. History of active nicotine addiction dependence with chronic obstructive pulmonary disease. 18. Ketonuria. 19. Microscopic hematuria. 20. Pyuria. 21. Bacteriuria. 22. Status post spinal tap. 23. Global parenchymal volume loss and ventriculomegaly. 24. Multi focal subcortical deep and periventricular white matter changes, nonspecific. Questionable mood chronic microangiopathic changes versus chronic infarct. 25. Left carotid bifurcation calcified plaque. 26. Chronic obstructive pulmonary disease with history of active nicotine addiction. 27. Deconditioning. 28. Questionable anterior ischemia on the EKG. 29. Left ventricular ejection fraction of 63% with concentric left ventricular hypertrophy and grade 1 abnormal relaxation pattern. 30. History of lupus erythematosus. 31. Systemic inflammatory response syndrome. 32. History of hypertension. 33. Anxiety disorder. 34. History of depression. PLAN: At this time, we are awaiting further recommendations regarding IV acyclovir continuation and further Infectious Disease recommendation and Neurology recommendations. Current medications Mucomyst nebulizer treatment 20% 4 mL every 6 hours with Xopenex nebulizer 0.63 mg every 6 hours, Ativan 1 mg IV every 6 hours p.r.n., Cozaar 100 mg daily, Ecotrin 81 mg daily, folic acid 1 mg daily, Humalog medium dose sliding scale coverage a.c. and at bedtime, Lipitor 10 mg daily, Lopressor 25 mg twice a day, Lovaza 1 g twice a day, Lovenox 40 mg subcutaneously daily, nicotine patch 21 mg daily, Paxil 10 mg daily, Protonix 40 mg daily, IV fluid, 0.9 normal saline at 70 mL an hour, Tylenol 650 mg p.o. suppository every 6 hours p.r.n., Zetia 10 mg daily, Zofran 4 mg IV every 4 hours p.r.n. and acyclovir 700 mg IV every 8 hours until further recommendations by Infectious Disease. The patient had an EEG done which was normal-awake drowsy EEG. At present as mentioned we are awaiting further recommendation by Infectious Disease regarding the duration of IV acyclovir therapy. The patient's herpes simplex virus PCR from CSF is pending. The patient has been updated about her condition, diagnosis, test results, recommendation at length in layman's language. All questions concerned answered. Dictated and electronically signed, not read. Signing off Tomas Adam MD Tomas Adam MD
--- NOTE | 2018-06-25 13:34 | CP.PCM.PCO ---
Physician Communication Note - Physician Communication Note Physician Communication Note: MRI with constrast pending
[2018-06-25 23:07] VITALS: PULSE 69
[2018-06-26] MEDS: Levalbuterol 0.63 MG/3 ML Inhal Soln UD IH SCH ×2 (02:43→07:57)
[2018-06-26] MEDS: Acetylcysteine 20% Inhal Soln (4ml) IH SCH ×2 (02:43→07:57)
--- NOTE | 2018-06-26 03:20 | PN ---
DATE: 06/25/2018 SUBJECTIVE: The patient is seen earlier today. Her mental status is much improved. She is awake and alert. She is responsive. She is much improved. PHYSICAL EXAMINATION: VITAL SIGNS: Temperature is 98, blood pressure is 150/80, respiratory rate of 20, heart rate of 64. HEENT: Unremarkable. NECK: Supple. LUNGS: Decreased breath sounds. HEART: Normal S1 and S2. ABDOMEN: Soft. LABORATORY EXAMINATION: Reveals a white count of 5.6, hemoglobin of 11. BUN of 7, creatinine of 0.6. CSF findings are noted, with 85 glucose and 1 wbc in the CSF. PCR is not detected, HSV PCR. The patient had an MRI of the brain with gadolinium; the results are pending. Review of orders reveals the patient to be on acyclovir. ASSESSMENT AND PLAN: A 73-year-old female who is admitted with acute change in mental status which is improved. Cerebrospinal fluid herpes PCR is negative initial PCR. We will check on the MRI. If the MRI of the brain with gadolinium is negative, we will discontinue the acyclovir. Waiting for MRI results. David Guillaume MD
[2018-06-26 07:41] VITALS: BP 134/80; RESP 16; TEMP 97.9; O2SAT 97
[2018-06-26] MEDS: Pantoprazole 40 mg EC Tab PO SCH (08:00)
[2018-06-26] MEDS: Insulin Lispro (humaLOG) MEDIUM Coverage SC SCH ×2 (08:14→12:41)
[2018-06-26] MEDS ORDERED: Gadodiamide 287 MG/ML VIAL (15ML) IV ONE (09:48)
[2018-06-26] MEDS: Omega-3-Acid Ethyl Esters 1 GM Cap PO SCH (10:17)
[2018-06-26] MEDS: Enoxaparin 40 mg Syringe SC SCH (10:18)
--- NOTE | 2018-06-26 10:58 | MRI ---
Date of service: 06/26/2018 PROCEDURE: MRI BRAIN WITH AND WITHOUT CONTRAST HISTORY: Rule out herpetic encephalitis COMPARISON: None available. TECHNIQUE: Multiplanar, multisequence MR images of the brain were obtained with and without intravenous contrast enhancement. FINDINGS: HEMORRHAGE: None DWI: No evidence of an acute or early subacute infarction. BRAIN PARENCHYMA: Chronic microvascular changes are seen in the periventricular white matter ENHANCEMENT: There is a small enhancing meningioma over the left posterior frontal convexity measuring 10 by 12 x 8 mm in size. There is no surrounding edema VENTRICLES: Unremarkable. No hydrocephalus. CRANIUM: Unremarkable. ORBITS: Grossly unremarkable. PARANASAL SINUSES/MASTOIDS: Clear VASCULAR SYSTEM: Skull base flow voids intact. OTHER FINDINGS: None . IMPRESSION: There is a small enhancing meningioma over the left posterior frontal convexity measuring 10 by 12 x 8 mm in size. There is no surrounding edema No evidence of encephalitis
--- NOTE | 2018-06-26 11:03 | DS ---
HISTORY: The patient was seen lying in the bed in 567, bed 2. REVIEW OF SYSTEMS: The patient 14-system review is negative. PHYSICAL EXAMINATION: VITAL SIGNS: T-max 97.9, pulse 69, blood pressure 134/80, respirations 16, O2 sat 97%. HEENT: Head examination normocephalic, atraumatic. Eyes; shows pink conjunctivae. Anicteric sclerae. No oropharyngeal lesion. NECK: No neck rigidity. CHEST: Kyphosis. LUNGS: Shows no audible crackle, rales, or wheezing. CARDIOVASCULAR: S1, S2, regular rhythm. ABDOMEN: Soft, positive bowel sounds. No palpable hepatosplenomegaly. GENITALIA: Female. RECTAL: Deferred. EXTREMITIES: Shows no pitting edema, no calf tenderness, no Homans' sign. NEUROLOGIC: The patient is completely alert, awake, responsive. She is able to move upper and lower extremity without assistance. VASCULAR: Palpable pulses. Cranial nerves II-XII intact. Gait examination is independent. LABORATORY DATA: Fingerstick blood sugar 150, 116, 128, 250, 137, 150. CSF VDRL is negative. CSF Cryptococcus antigen is negative. CSF herpes IgM-1 and IgM-2 is negative. All microbiological cultures are negative. The patient underwent an MRI of the brain with gadolinium as per infectious disease recommendation. FINAL IMPRESSION, PLAN, AND DISCHARGE DIAGNOSES: 1. Acute altered mental status and acute encephalopathy, etiology undetermined. 2. High-grade fever. 3. Type 2, well-controlled diabetes mellitus. 4. Leukocytosis with granulocytosis. 5. Mild normocytic anemia. 6. Type 2 noninsulin-requiring diabetes mellitus well-controlled with hemoglobin A1c of 6.3. 7. Hypophosphatemia. 8. Hypertriglyceridemia. 9. Trace ketonuria, microscopic hematuria, bacteriuria. 10. Status post spinal tap. 11. Cerebral cortical atrophy of the brain with global parenchymal volume loss and ventriculomegaly. 12. Left ventricular ejection fraction of 63.2%. 13. Grade 1 abnormal relaxation pattern. 14. Questionable encephalitis. 15. Systemic inflammatory response syndrome with fever. 16. Hypertension. 17. Tachycardia. 18. Transient neutropenia. 19. Hypokalemia. 20. Hyperglycemia. 21. Hypomagnesemia. 22. History of nicotine addiction and dependent. 23. Chronic obstructive pulmonary disease. 24. Multifocal subcortical deep and white matter and periventricular white matter changes, nonspecific, questionable chronic microangiopathic changes versus chronic infarct. 25. Left carotid bifurcation calcified plaque. 26. Deconditioning. 27. Questionable ischemic changes on the EKG. 28. History of systemic lupus erythematosus. 29. Anxiety disorder. 30. Depression. PLAN: At this time, the patient is awaiting MRI of the brain with gadolinium and according to the Infectious Disease recommendation if MRI of the brain with gadolinium is negative to stop the IV acyclovir which is the only IV medication the patient is presently on. The patient will be considered for discharge after cleared by Neurology and Infectious Disease and once IV acyclovir is stopped. CURRENT MEDICATIONS: Mucomyst nebulizer 20% 4 mL every 6 hours, Ativan 1 mg IV every 6 hours p.r.n., Cozaar 100 mg daily, Ecotrin 81 mg daily, folic acid 1 mg daily, Humalog medium dose sliding scale coverage a.c. and at bedtime, Lipitor 10 mg daily, Lopressor 25 mg twice a day, Lovaza 1 g twice a day, Lovenox 40 mg subcu daily for DVT prophylaxis, nicotine patch 21 mg daily, Paxil 10 mg daily, Protonix 40 mg daily, IV fluid 0.9 normal saline at 70 mL an hour, Tylenol 650 p.o. suppository every 6 hours p.r.n., Xopenex nebulizer 0.63 mg every 6 hours, Zetia 10 mg at bedtime, Zofran 4 mg IV every 4 hours p.r.n., acyclovir 700 mg IV every 8 hours. MRI with contrast has been pending, which will be reviewed. The patient had an MRI of the brain which was ordered with contrast last night, but the licensed psychiatric technician changed the ordered to without contrast. This was reported and discussed with assistant clinical director, Familia Rizzo, and now the patient is going to undergo MRI of the brain with gadolinium which was correctly ordered yesterday, but the order was changed by the mechanical system technician. If the MRI is negative, the patient will be cleared for discharge by Infectious Disease. Upon discharge, the patient will resume all home medication which will be as follows. DISCHARGE HOME MEDICATIONS: Norvasc 5 mg daily, Ecotrin 81 mg daily, Lipitor 10 mg daily, Zetia 10 mg daily, folic acid 1 mg daily, Amaryl 1 or 2 mg daily, folic acid 1 mg daily, Plaquenil 200 mg twice a day, Avapro 150 or 300 mg daily, Reglan 10 mg twice a day p.r.n., Toprol XL 50 mg daily, Lovaza 2 capsules twice a day, Prilosec 20 mg p.r.n., Paxil 5 or 10 mg daily. The patient will be ordered to be discharged home after cleared by Infectious Disease and if the repeat MRI of the brain with gadolinium is negative, the patient will resume all home medications. Next discharge followup with Dr. Adam, next week. The patient will resume all home medications as dictated above, which the patient already had the prescription for. During this hospitalization, the patient was explained about her condition, diagnosis, treatment details, diagnostic test results, recommendation by all the physicians was explained to the patient and the patient's spouse at length and all questions concerned answered which acknowledged understand. Time spent in the entire discharge process 45 minutes. Dictated and electronically signed, not read. Tomas Adam MD
[2018-06-26 18:06] LABS: SPECIMEN SOURCE CSF
--- NOTE | 2018-06-26 18:35 | PN ---
DATE: 06/26/2018 SUBJECTIVE: The patient seen in bed, no acute distress, and nontoxic. PHYSICAL EXAMINATION VITAL SIGNS: Temperature is 97, blood pressure is 158/80, respiratory rate 20, and heart rate of 69. HEENT: Unremarkable. NECK: Supple. LUNGS: Have decreased breath sounds. HEART: Normal S1 and S2. ABDOMEN: Soft and nontender. LABORATORY EXAMINATION: Reveals white count of 5.6, hemoglobin of 11, platelets of 202, and creatinine is 0.6. Urinalysis is noted and the patient had an MRI with contrast which was negative except for meningioma with a posterior frontal convexity. ASSESSMENT AND PLAN: A 73-year-old female who is seen earlier today in room 567, bed 2. Awake and alert, doing much better now with negative PCR, negative MRI with contrast with discontinuity of acyclovir. The patient will be discharged today and the patient was seen earlier this morning. David Guillaume MD
[2018-06-26 20:53] LABS: LYME IGG NEGATIVE (NEGATIVE)
[2018-06-26 21:07] LABS: LYME IGM NEGATIVE (NEGATIVE)
[2018-06-26 21:52] LABS: SOURCE: CSF
== END 2018-06-26 13:52 | disposition home or self-care (01) | DRG 71 ==
LOC: ED 00:42 → ERH 02:56 → 2RNO 17:47 → 5RNO 06-23 11:47
PROVIDERS: ADMIT Internal Medicine; ATTEND Internal Medicine
PROC: 009U3ZX Drainage of Spinal Canal, Percutaneous Approach, Diagnostic (ICD-10-PCS; principal; 2018-06-21)
DX: G93.40 Encephalopathy, unspecified (principal); R65.10 Systemic inflammatory response syndrome (SIRS) of non-infectious origin without acute organ dysfunction; R47.01 Aphasia; E44.1 Mild protein-calorie malnutrition; E11.65 Type 2 diabetes mellitus with hyperglycemia; I11.9 Hypertensive heart disease without heart failure; F32.9 Major depressive disorder, single episode, unspecified; E87.6 Hypokalemia; M32.9 Systemic lupus erythematosus, unspecified; E03.9 Hypothyroidism, unspecified; J44.9 Chronic obstructive pulmonary disease, unspecified; E83.51 Hypocalcemia; E83.42 Hypomagnesemia; D64.9 Anemia, unspecified; E78.1 Pure hyperglyceridemia; R44.1 Visual hallucinations; R13.11 Dysphagia, oral phase; F06.4 Anxiety disorder due to known physiological condition; E83.39 Other disorders of phosphorus metabolism; D70.9 Neutropenia, unspecified; F17.210 Nicotine dependence, cigarettes, uncomplicated; E78.00 Pure hypercholesterolemia, unspecified; E78.5 Hyperlipidemia, unspecified; R31.29 Other microscopic hematuria; R41.82 Altered mental status, unspecified; Z96.651 Presence of right artificial knee joint; Z79.82 Long term (current) use of aspirin; Z79.84 Long term (current) use of oral hypoglycemic drugs